=== PATIENT | female | born 1955 | race Caucasian/White ===

== ENCOUNTER 2016-03-01 18:20 | Inpatient (IN) | payer OTHER ==
[~2016-03-01] VITALS: Ht 167.6 cm; Wt 131.5 kg
[~2016-03-01 18:20] MED LIST: ALBU18HF INHALATION; ALBU8.5H5 INH; BACTDS PO; CEPH-443 PO; ETAN50PE2 SQ; FAMO-18 PO; GABA-526 PO; HYDR-3498 PO; IBUP800T25 PO; INSU100C SC; LANS30CA47 PO; LANT3I SC; LOSA100T7 PO; LYR75 PO; MAG355OR15 PO; METO-448 PO; MORP15TA92 PO; MTF1000T PO; ONDA4TAB35 PO; PRED20TA PO; RTPRO NEB; SENN-8 PO; TRAM-408 PO; ZOLP5TAB PO
[2016-03-01] MEDS ORDERED: ONDANSETRON 4 MG INJ IV PRN (18:30)
[2016-03-01] MEDS ORDERED: ACETAMINOPHEN 325 MG TAB PO PRN ×2 (18:30→19:30)
--- NOTE | 2016-03-01 18:45 | ERA ---
ER Documentation Chief Complaint Date/Time DATE: 03/01/16 TIME: 18:42 Chief Complaint Abdominal pain and rectal bleeding HPI Patient is a 51-year-old female with coronary disease, hypertension, and diabetes who presents with abdominal pain and rectal bleeding. The patient was seen in January for back pain. She now has blood in her stool over the past 2 weeks and it has been bright red blood. Patient has diffuse abdominal pain which is sharp in nature. It is constant but waxes and wanes in intensity. It was worse today. She tried Motrin and Excedrin. She says "I think I have a problem with my colon". She is not on blood thinners. She said that 3 years ago she had a colonoscopy and endoscopy which showed "inflamed colon". ROS All systems reviewed and are negative except as per history of present illness. Medications Home Meds Active Scripts Cephalexin* (Keflex*) 500 Mg Capsule, 500 MG PO QID for 7 Days, CAP Prov:RICHARD UMANZOR PA-C 01/05/16 Sulfamethoxazole-Trimethoprim* (Bactrim* DS) 800-160 Mg Tab, 1 TAB PO BID for 7 Days, TAB Prov:RICHARD UMANZOR PA-C 01/05/16 Albuterol Sulfate* (Proventil* Neb) 0.083% Neb, 2.5 MG NEB Q4 Y for SHORTNESS OF BREATH, #30 EA Prov:DANIELLE CHO 04/07/15 Albuterol Sulfate* (Ventolin HFA*) 18 Gm Hfa.aer.ad, 2 PUFF INHALATION Q4H, #1 INHALER Prov:DANIELLE CHO 04/07/15 Prednisone* (Prednisone*) 20 Mg Tab, 40 MG PO DAILY for 4 Days, TAB Prov:DANIELLE CHO 04/07/15 Ibuprofen* (Motrin*) 800 Mg Tab, 800 MG PO Q6, #30 TAB Prov:DANIELLE CHO 04/07/15 Ondansetron Hcl* (Zofran* ODT) 4 mg -ODT Tab.disper, 4 MG PO Q6 Y for NAUSEA AND /OR VOMITING, #20 TAB Prov:SAMIR KIDD MD 09/03/14 Mag Hydrox/Al Hydrox/Simeth (Maalox Max Strength Susp) 769 Ml Oral.susp, 2 TSP PO TID, #12 OZ Prov:SAMIR KIDD MD 09/03/14 Famotidine* (Pepcid*) 20 Mg Tablet, 20 MG PO BID, #30 TAB Prov:SAMIR KIDD MD 09/03/14 Albuterol Sulfate* (Albuterol Sulfate* HFA) 8.5 Gm Hfa.aer.ad, 1-2 PUFF INH Q4 Y for SHORTNESS OF BREATH, #1 EA Prov:SAMIR KIDD MD 09/03/14 Sennosides/Docusate Sodium* (Senna-S*) 1 Tab Tablet, 1 TAB PO Q12 for 30 Days, TAB 1 Refill Prov:MEAGAN WOODRUFF 02/25/14 Hydrocodone Bit/Acetaminophen (Anexsia 5-325 Mg Tablet) 1 Tab Tab, 1 TAB PO q6h Y for PAIN, #14 0 Refills Prov:MEAGAN WOODRUFF 02/25/14 Reported Medications Etanercept (Enbrel) 50 Mg/Ml Pen.injctr, 50 MG SQ on 02/24/14 Insulin Lispro (Humalog) 100 U/Ml Cartridge, 10 UNITS SC WITH MEALS, EA 02/24/14 Metoprolol Tartrate* (Lopressor*) 25 Mg Tab, 25 MG PO BID, TAB 02/24/14 Morphine Sulfate* (Ms Contin*) 15 Mg Tablet.sa, 45 MG PO BID, TAB.SA 02/24/14 Losartan Potassium* (Losartan Potassium*) 100 Mg Tablet, 100 MG PO DAILY, TAB 02/24/14 Insulin Glargine* (Lantus*) 100 Unit/Ml Soln, 40 UNIT SC BID, EA 02/24/14 Pregabalin* (Lyrica*) 75 Mg Capsule, 150 MG PO BID 12/15/12 Tramadol Hcl (Rybix Odt) 50 Mg Tab.rapdis, 50 MG PO DAILY Y for PAIN 12/15/12 Gabapentin* (Gabapentin*) 600 Mg Tablet, 600 MG PO BID 12/15/12 Metformin* (Glucophage*) 1,000 Mg Tablet, 1000 MG PO BID 12/15/12 Zolpidem Tartrate* (Ambien*) 5 Mg Tablet, 5 MG PO DAILY Y for SLEEP 04/16/09 Lansoprazole* (Prevacid*) 30 Mg Capsule.dr, 30 MG PO DAILY 03/19/09 Allergies Allergies: Coded Allergies: No Known Allergy (Verified , 09/03/14) PMhx/Soc History of Surgery: Yes (Cholecystectomy) Anesthesia Reaction: No Hx Neurological Disorder: No Hx Respiratory Disorders: Yes (asthma) Hx Psychiatric Problems: No Hx Miscellaneous Medical Probl: Yes (RA, dm type 2) Hx Alcohol Use: No Hx Substance Use: No Hx Tobacco Use: No FmHx Family History: diabetes Physical Exam Physical Exam Const: Moderate distress secondary to pain Head: Atraumatic Eyes: Normal Conjunctiva ENT: Normal External Ears, Nose and Mouth. Neck: Full range of motion..~ No meningismus. Resp: Clear to auscultation bilaterally Cardio: Regular rate and rhythm, no murmurs Abd: Soft, diffuse tenderness to palpation without rebound or guarding Skin: No petechiae or rashes Back: No midline or flank tenderness Ext: No cyanosis, or edema Neur: Awake and alert Psych: Normal Mood and Affect Results 24 hrs Current Medications Medications (Trade) Dose Ordered Sig/[place] Route PRN Reason Start Time Stop Time Status Last Admin Dose Admin Ondansetron HCl (Zofran Inj) 4 mg BRIDGE ORDER PRN IV NAUSEA AND/OR VOMITING 03/01/16 18:30 03/02/16 18:29 Acetaminophen (Tylenol Tab) 650 mg ER BRIDGE PRN PO MILD PAIN/FEVER 03/01/16 18:30 03/02/16 18:29 Procedures/MDM CT scan shows constipation but no surgical abnormality per radiology. Patient is a 51-year-old female who presents with abdominal pain and rectal bleeding. Laboratory studies show a normal hemoglobin of 13.1 and normal electrolytes, LFTs, and lipase. The patient had a CT scan which did not show any surgical issue. However given the risk of continued rectal bleeding I believe admission is appropriate and I spoke with Dr. Hummel from the panel team. The patient will be admitted to a medical surgical bed. She was given doses of morphine and Dilaudid for pain and is still having abdominal pain. At this point I doubt appendicitis, cholecystitis, pancreatitis, or bowel obstruction. She may benefit from GI consultation and possibly even colonoscopy versus endoscopy or both. Please note that the initial patient was registered as Bhavna Taveras [id number] and the laboratory results and CT scan results were under this patient initially. Departure Diagnosis: Primary Impression: GI bleed Qualified Code: K92.2 - Gastrointestinal hemorrhage, unspecified gastrointestinal hemorrhage type Additional Impression: Abdominal pain Qualified Code: R10.84 - Generalized abdominal pain Condition: TEVIN Gross MD Mar 01, 2016 18:45
[2016-03-01] MEDS ORDERED: ALBUTEROL/IPRATROPIUM (NEB) 3 ML AMP HHN PRN (19:30)
[2016-03-01] MEDS ORDERED: NACL 0.9% 3 ML SYG IV SCH (19:30)
[2016-03-01] MEDS ORDERED: HYDROmorphONE 1 MG/ML SYG IV STA (19:38)
[2016-03-01] MEDS ORDERED: GLUCOSE GEL 15 GRAM TUBE BUCCAL PRN (20:00)
[2016-03-01] MEDS ORDERED: DEXTROSE 50% 50 ML SYRINGE IV PRN ×2 (20:00)
[2016-03-01] MEDS ORDERED: GLUCAGON 1 MG INJ IM PRN (20:00)
[2016-03-01] MEDS ORDERED: GLUCOSE GEL 15 GRAM TUBE PO PRN ×2 (20:00)
[2016-03-01 20:28] VITALS: TEMP 98.4
[2016-03-01 21:00] VITALS: BP 143/73; PULSE 83; RESP 18; Ht 167.6 cm; Wt 131.5 kg
[2016-03-01] MEDS: GABAPENTIN 300 MG CAP PO SCH (21:00)
[2016-03-01] MEDS: PREGABALIN 75 MG CAP PO SCH (21:00)
[2016-03-01] MEDS: INSULIN ASPART [NOVOLOG] 3 ML PEN SC SCH (21:00)
[2016-03-01] MEDS: morphine 4 MG/ML VIAL IV PRN (21:28)
[2016-03-01] MEDS: DEXTROSE 5%-0.45% NACL 1,000 ML IV SCH (21:31)
[2016-03-01] MEDS: INSULIN GLARGINE [LANtus] 3 ML PEN SC SCH (22:46)
[2016-03-01] MEDS: PANTOPRAZOLE 40 MG INJ IV SCH (22:48)
--- NOTE | 2016-03-02 00:03 | HP ---
DATE OF ADMISSION: 03/01/2016 TIME: 10:15 p.m. CHIEF COMPLAINT: Abdominal pain with gastrointestinal bleed. HISTORY OF PRESENT ILLNESS: The patient is a 60-year-old female with a history of insulin-dependent diabetes, fibromyalgia, chronic back pain, gastritis, and hypertension. The patient presents with 2 weeks of abdominal pain that gets worse with eating, is associated with nausea and associated with a GI bleed. The patient states that she has had bright red blood per rectum for the past 2 weeks w hen she has a bowel movement. At times it is mixed in with the stool and at times it sits on top. The patient does take Motrin on a regular basis. She has no other complaints at this time. She dunn s state that earlier today she syncopized while on the toilet. She states that she had a significan t amount of pain prior to her syncopal episode, and she felt dizzy prior to her syncopizing. PAST MEDICAL HISTORY: Once again, insulin-dependent diabetes, hypertension, chronic back pain, mitchel ritis, fibromyalgia. PAST SURGICAL HISTORY: Cholecystectomy. HOME MEDICATIONS: 1. Albuterol. 2. Pepcid. 3. [place]. 4. Ibuprofen. 5. Prevacid. 6. Metformin. 7. Metoprolol. 8. Morphine. 9. Zofran. 10. Prednisone. 11. Senna. 12. Bactrim. 13. Ambien. 14. Tramadol. 15. Enbrel. 16. Gabapentin. 17. Lantus. 18. Humalog. 19. Losartan. 20. Lyrica. ALLERGIES: NO KNOWN DRUG ALLERGIES. FAMILY HISTORY: Diabetes. SOCIAL HISTORY: Denies any alcohol, tobacco, or drug abuse. REVIEW OF SYSTEMS: A 12-point review of systems negative except for that discussed in HPI. PHYSICAL EXAMINATION: VITAL SIGNS: Temperature is 97.6, pulse 83, respiratory rate 18, BP is 142/73, saturation 99% on ro om air. GENERAL: No acute distress, alert and oriented. HEENT: Normocephalic, atraumatic. Pupils equal, round, and reactive to light. CHEST: Clear to auscultation. CARDIOVASCULAR: Regular rate and rhythm. ABDOMEN: Obese, nondistended, soft, nontender. EXTREMITIES: No clubbing, cyanosis, or edema. LABORATORIES: White count is 8.9, hemoglobin 16.0, platelets are 299. Chemistry within normal limi ts except for glucose elevated at 279. ASSESSMENT AND PLAN: 1. Abdominal pain with lower gastrointestinal bleed, is likely secondary to worsening with gastriti s, possible gastric ulcer formation as the patient is on chronic NSAID use. The patient's lower GI bleed may be secondary to hemorrhoids. The patient states that sometimes the bright red blood is on top of her stool. The patient will have a GI consultation. Will defer endoscopy plans to GI. Johny domingo treat with Protonix IV at this time. 2. Syncope. This is likely vasovagal as the patient had significant abdominal pain prior to her sy ncopal episode. She stated that she felt dizzy as well prior to syncopizing. Obtain a 2D echo to r ule out any cardiac etiology. 3. Diabetes. Continue her home insulin. 4. History of fibromyalgia. We will treat pain with morphine and Neurontin as well as her home Lyr ica. 5. Hypertension. Continue her home Losartan. 6. Asthma. Will give breathing treatments with DuoNeb p.r.n. 7. Prophylaxis: SCDs. Dictated By: JANICE BOYD MD BS/NTS Conf#: [id number] DID#: [id number]
[2016-03-02] MEDS: morphine 4 MG/ML VIAL IV PRN ×5 (01:05→22:07)
[2016-03-02] MEDS: PANTOPRAZOLE 40 MG INJ IV SCH ×2 (05:31→17:25)
[2016-03-02 05:41] LABS: ALBUMIN 3.2 g/dl (3.3-4.9)
[2016-03-02 05:42] LABS: POTASSIUM 3.6 mmol/L (3.5-5.1)
[2016-03-02 05:44] LABS: BILIRUBIN,INDIRECT 0.3 mg/dl (0-1.1); BILIRUBIN,TOTAL 0.3 mg/dl (0.2-1.3); CREATININE 0.59 mg/dl (0.44-1.00); TOTAL PROTEIN 6.4 g/dl (6.1-8.1)
[2016-03-02 05:45] LABS: CALCIUM 7.5 mg/dl (8.4-10.2); MAGNESIUM 1.7 mg/dl (1.7-2.5); PHOSPHORUS 3.8 mg/dl (2.5-4.9)
[2016-03-02 05:46] LABS: BASOPHILS % 0.3 % (0.0-2.0); EOSINOPHILS # 0.1 10^3/ul (0.0-0.5); EOSINOPHILS % 0.9 % (0.0-7.0); HEMOGLOBIN 12.2 g/dl (12.0-16.0); LYMPHOCYTES # 2.8 10^3/ul (0.8-2.9); LYMPHOCYTES % 34.5 % (15.0-51.0); MEAN CORPUSCULAR HGB CONC 33.1 g/dl (32.0-37.0); MEAN CORPUSCULAR VOLUME 90.6 fl (82.0-101.0); MEAN PLATELET VOLUME 9.7 fl (7.4-10.4); MONOCYTE # 0.8 10^3/ul (0.3-0.9); MONOCYTES % 9.9 % (0.0-11.0); NEUTROPHIL # 4.4 10^3/ul (1.6-7.5); NEUTROPHILS % 54.4 % (39.0-77.0); PLATELET COUNT 245 10^3/UL (140-440); RED BLOOD COUNT 4.08 10^6/ul (4.20-5.40); RED CELL DISTRIBUTION WIDTH 12.9 % (11.5-14.5)
[2016-03-02] MEDS ORDERED: PANTOPRAZOLE 40 MG INJ IV SCH (06:00)
[2016-03-02 06:10] LABS: CONDITION 1
[2016-03-02 07:27] VITALS: BP 147/63; RESP 16
[2016-03-02] MEDS: DEXTROSE 5%-0.45% NACL 1,000 ML IV SCH ×3 (07:30→17:25)
[2016-03-02] MEDS: INSULIN ASPART [NOVOLOG] 3 ML PEN SC SCH ×7 (07:35→20:47)
[2016-03-02] MEDS: INSULIN GLARGINE [LANtus] 3 ML PEN SC SCH ×2 (08:33→20:47)
[2016-03-02] MEDS: LOSARTAN 50 MG TAB PO SCH (08:34)
[2016-03-02] MEDS: GABAPENTIN 300 MG CAP PO SCH ×2 (08:35→20:48)
[2016-03-02] MEDS: PREGABALIN 75 MG CAP PO SCH ×2 (08:35→20:48)
--- NOTE | 2016-03-02 09:59 | RADRPT ---
Echocardiogram Report Patient Name: ANDREZ ENCISO Gender: Female Date: 1955 Study Date: 02-Mar-2016 Osteopathic Medicine Teacher: Rubens Morales [facility] Location: [id number] Ref. Physician: JANICE BOYD Quality: Technically Difficult Study Procedures: Transthoracic echocardiogram with complete 2D, M-Mode, and doppler examination. Indications: Evaluate Left Ventricular function. 2D/M Mode Doppler Measurement Value Normal Ranges Measurement Value Normal Ranges LVIDd 2D 5.1 3.5 - 5.6 cm AV Peak Ramon 1.7 m/sec LVIDs 2D 2.9 2.1 - 4.1 cm AV Peak PG 11.0 mmHg FS 2D 42.9 % LVOT Peak Ramon 1.0 m/sec LVPWd 2D 1.1 0.6 - 1.1 cm LVOT Peak PG 4.0 mmHg IVSd 2D 1.0 0.6 - 1.1 cm MV E Peak Ramon 0.7 m/sec IVS/LVPW 2D 0.9 MV A Peak Ramon 0.8 m/sec AoR Diam 2D 3.3 2.0 - 3.7 cm MV E/A 0.9 LA/Ao 2D 1 0 - 1 MV Decel Time 141 msec EDV 2D 130.0 cm3 MV E/A 0.9 ESV 2D 24.1 cm3 LA Dimen 2D 3.8 2.3 - 4.0 cm Findings Left Ventricle: Normal left ventricular systolic function. Normal left ventricular cavity size. Mild concentric left ventricular hypertrophy. Ejection fraction is visually estimated at 55 %. Tissue Doppler/Mitral Doppler indices are consistent with impaired relaxation (Stage I diastolic dysfunction). Right Ventricle: Normal right ventricular size. Normal right ventricular systolic function. Left Atrium: There is mild enlargement of left atrium. Right Atrium: The right atrium is normal in size. Mitral Valve: Mild mitral annular calcification. Trace mitral regurgitation. Aortic Valve: No significant aortic stenosis or insufficiency. Aortic cusps appear mildly calcified. Tricuspid Valve: Normal appearance of the tricuspid valve. Unable to obtain RVSP due to minimal presence of tricuspid regurgitation. Pericardium: Normal pericardium with no significant pericardial effusion. Aorta: Normal aortic root. IVC: The IVC is not well visualized. Conclusions 1.Normal left ventricular systolic function. Normal left ventricular cavity size. Mild concentric left ventricular hypertrophy. Ejection fraction is visually estimated at 55 %. Tissue Doppler/Mitral Doppler indices are consistent with impaired relaxation (Stage I diastolic dysfunction). 2.No significant valvular stenosis or regurgitation seen. 3.PAP and RA pressure could not be estimated. Electronically Signed By: Horacio Casper 02-Mar-2016 09:58:32 -0800 Patient Name: ANDREZ ENCISO Study Date: 02-Mar-[id number]
[2016-03-02] MEDS ORDERED: CEPASTAT LOZENGE MT PRN (13:00)
[2016-03-02 13:32] LABS: HEMATOCRIT 36.4 % (37.0-47.0); HEMOGLOBIN 12.1 g/dl (12.0-16.0)
--- NOTE | 2016-03-02 14:14 | PN ---
Date/Time of Note Date/Time of Note DATE: 03/02/16 TIME: 14:09 Assessment/Plan VTE Prophylaxis VTE Prophylaxis Intervention: SCD's Lines/Catheters IV [facility]ter Type (from [facility]): Peripheral IV Urinary Cath still in place: No Assessment/Plan Assessment/Plan 1. Abdominal pain. Etiology unclear. The patient has history of colitis. She also has a history of esophagitis and patchy gastritis. Will obtain a CT scan of the abdomen and pelvis without contrast. 2. Reported hematochezia. Will monitor the H&H closely. Continue proton pump inhibitors. Pending gastroenterology evaluation. 3. Type 2 diabetes mellitus. Continue sliding scale insulin. Obtain hemoglobin A1c. 4. Essential hypertension. Continue antihypertensives. 5. Fibromyalgia. Continue Lyrica. 6. Fluids, electrolytes, and nutrition. N.p.o. except for medications. Continue IV fluids. 7. Gastrointestinal prophylaxis. Proton pump inhibitors. 8. DVT prophylaxis. Bilateral SCDs. 9. Plan. Continue pain control. Monitor H&H closely. Obtain CT scan of the abdomen and pelvis. Await gastroenterology evaluation. Case discussed with Dr. Prado. Subjective 24 Hr Interval Summary Free Text/Dictation Complains of severe abdominal pain. Complains of nausea. Denies any vomiting. Last episode of hematochezia on 03/01/2016. Exam/Review of Systems Vital Signs Vitals Vital Signs Date Time Temp Pulse Resp B/P Pulse Ox O2 Delivery O2 Flow Rate FiO2 03/02/16 07:27 98.0 91 16 147/63 98 03/01/16 21:00 Room Air Intake and Output 03/01/16 03/01/16 03/02/16 15:00 23:00 07:00 Intake Total 750 ml Balance 750 ml Exam General: Morbidly obese build 60 year-old female lying in bed in no apparent distress. HEENT: Normocephalic, atraumatic. Eyes: Anicteric sclerae, conjunctivae clear. ENT: Nasal septum midline, oral mucosa is dry. Neck supple, no JVD noticed. Respiratory: Bilaterally clear breath sounds. No use of accessory muscles of respiration. No adventitious breath sounds. Cardiovascular: S1, S2 heard. No murmurs or gallops. Abdomen: Soft and nondistended. Bowel sounds positive in all 4 quadrants. Diffuse tenderness in all 4 quadrants. Genitourinary: Deferred. Extremities: No cyanosis, no clubbing, no edema. Peripheral pulses palpable. Neurologic: Cranial nerves II through XII grossly intact. The patient is awake, alert, and oriented. Skin: Normal skin turgor. No skin rashes. Results Result Diagram: 03/02/16 1320 03/02/16 0428 Results 24 hrs Laboratory Tests Test 03/01/16 20:53 03/02/16 03:10 03/02/16 04:28 03/02/16 08:27 Bedside Glucose 158 194 203 Alanine Aminotransferase (ALT/SGPT) 51 Albumin 3.2 L Albumin/Globulin Ratio 1.00 Alkaline Phosphatase 101 Anion Gap 12 Aspartate Amino Transf (AST/SGOT) 47 H Basophils # 0.0 Basophils % 0.3 Blood Urea Nitrogen 9 Calcium Level 7.5 L Carbon Dioxide Level 30 Chloride Level 103 Creatinine 0.59 Direct Bilirubin 0.00 Eosinophils # 0.1 Eosinophils % 0.9 Globulin 3.20 Glucose Level 210 Hematocrit 37.0 Hemoglobin 12.2 Indirect Bilirubin 0.3 Lymphocytes # 2.8 Lymphocytes % 34.5 Magnesium Level 1.7 Mean Corpuscular Hemoglobin 30.0 Mean Corpuscular Hemoglobin Concent 33.1 Mean Corpuscular Volume 90.6 Mean Platelet Volume 9.7 Monocytes # 0.8 Monocytes % 9.9 Neutrophils # 4.4 Neutrophils % 54.4 Nucleated Red Blood Cells # 0.0 Nucleated Red Blood Cells % 0.0 Phosphorus Level 3.8 Platelet Count 245 Potassium Level 3.6 Red Blood Count 4.08 L Red Cell Distribution Width 12.9 Sodium Level 141 Total Bilirubin 0.3 Total Protein 6.4 White Blood Count 8.0 Test 03/02/16 13:11 03/02/16 13:20 Bedside Glucose 213 Hematocrit 36.4 L Hemoglobin 12.1 Medications Medications Current Medications Dextrose/Sodium Chloride (D5-1/2ns) 1,000 ml @ 100 mls/hr Q10H IV Last administered on 03/02/16t 07:30; Admin Dose 100 MLS/HR; Start 03/01/16 at 19:28 Ondansetron HCl (Zofran Inj) 4 mg Q6H PRN IV NAUSEA AND/OR VOMITING; Start 03/01 at 19:30 Acetaminophen (Tylenol Tab) 650 mg Q6H PRN PO PAIN LEVEL 1-3 OR FEVER; Start at 19:30 Morphine Sulfate (morphine) 4 mg Q4H PRN IV SEVERE PAIN LEVEL 7-10 Last administered on 03/02/16 13:19; Admin Dose 4 MG; Start 03/01/16 at 19:30 Gabapentin (Neurontin) 600 mg BID PO ; Start 03/01/16 at 21:00 Insulin Glargine (Lantus) 40 unit BID SC Last administered on 03/02/16 08:33; Admin Dose 40 UNIT; Start 03/01/16 at 21:00 Losartan Potassium (Cozaar) 100 mg DAILY PO Last administered on 03/02/16 08:34 ; Admin Dose 100 MG; Start 03/02/16 at 09:00 Pregabalin (Lyrica) 150 mg BID PO ; Start 03/01/16 at 21:00 Miscellaneous Information 1 ea NOTE XX ; Start 03/01/16 at 20:00 Glucose (Glutose) 15 gm Q15M PRN PO DECREASED GLUCOSE; Start 03/01/16 at 20:00 Glucose (Glutose) 22.5 gm Q15M PRN PO DECREASED GLUCOSE; Start 03/01/16 at 20:00 Dextrose (D50w Syringe) 25 ml Q15M PRN IV DECREASED GLUCOSE; Start 03/01/16 at 20:00 Dextrose (D50w Syringe) 50 ml Q15M PRN IV DECREASED GLUCOSE; Start 03/01/16 at 20:00 Glucagon (Glucagen) 1 mg Q15M PRN IM DECREASED GLUCOSE; Start 03/01/16 at 20:00 Glucose (Glutose) 15 gm Q15M PRN BUCCAL DECREASED GLUCOSE; Start 03/01/16 at 20: 00 Pantoprazole (Protonix Iv) 40 mg BID@06,18 IV Last administered on 03/02/16 05: 31; Admin Dose 40 MG; Start 03/01/16 at 22:40 Phenol (Cepastat Lozenge) 1 lozenge Q1H PRN MT SORE THROAT; Start 03/02/16 at 13 :00 POLO MCLAUGHLIN NP Mar 02, 2016 14:14
--- NOTE | 2016-03-02 16:00 | RADRPT ---
PROCEDURE: CT Abdomen and Pelvis without contrast. CLINICAL INDICATION: Abdominal pain TECHNIQUE: CT scan of the abdomen and pelvis was performed on a multidetector high-resolution CT s canner without intravenous contrast. Coronal and sagittal reformatted images were obtained from the axial source images. Images were reviewed on a high-resolution PACS workstation. The total exam CTD I equals 24mGy and the total exam DLP equals 1427mGy-cm. COMPARISON: Abdominal CT 02/24/2014 FINDINGS: Evaluation of the solid organs is limited given the lack of intravenous contrast administration. Left lower lobe calcified granuloma. Hypoattenuation of the liver. Status post cholecystectomy. No evidence of biliary dilatation. The pancreas, spleen, and adrenals are grossly unremarkable. No hydronephrosis. No renal or ureteral stone. No bowel obstruction. Normal-caliber appendix. No significant retroperitoneal lymphadenopathy, ascites or evidence of pneumoperitoneum. Aortoiliac atherosclerosis. Degenerative changes of the spine. Bilateral L5 pars defects. IMPRESSION: No acute intra-abdominal process identified. Status post cholecystectomy. Hepatic steatosis. RPTAT: AA .Baldomero Newberry MD, MD Date Time Electronically viewed and signed by .Baldomero Newberry MD, on 03/02/2016 16:00 .T/
[2016-03-02] MEDS ORDERED: BISACODYL (EC) 5 MG TAB PO ONE ×2 (19:00→22:00)
[2016-03-02] MEDS ORDERED: MAGNESIUM CITRATE 300 ML BTL PO ONE (19:00)
--- NOTE | 2016-03-02 19:34 | CONS ---
Date/Time of Note Date/Time of Note DATE: 03/02/16 TIME: 19:26 Assessment/Plan Assessment/Plan Additional Assessment/Plan Abdominal pain, evaluate for PUD * Recommend EGD * PPI therapy Hematochezia * Recommend colonoscopy Hypertension Type 2 diabetes Obesity Fibromyalgia Chronic back pain Further recommendations depend on clinical course Consultation Date/Type/Reason Admit Date/Time Mar 01, 2016 at 18:28 Hx of Present Illness 60-year-old obese female with reports of hematochezia and intense epigastric abdominal pain for the last 2-3 days. Patient reported several episodes seeing blood after bowel movements and blood in toilet bowl for the last 2-3 days. Patient denies previous episode, laxative use, diverticulosis diagnosis, anal trauma, and hemorrhoids. In addition to this, patient reports intense epigastric pain that is worse when she eats. Patient reports history of gastritis and PPI use for several years. She reports a EGD and colonoscopy 2 years ago. She states EGD noted gastritis and colonoscopy noted inflammation and she was given unknown medication for treatment. Patient also reports chronic use of NSAID to help treat fibromyalgia and chronic pain. Patient has PMH of insulin-dependent diabetes, fibromyalgia, chronic back pain, gastritis, and hypertension. Recommend EGD and colonoscopy. Patient advised of risks/ benefits/alternatives to procedures and she is agreeable to proceed. Per HPI Past Medical History Medical History: diabetes, GERD, hypertension Past Surgical History Past Surgical Hx: no surgical history Social History Alcohol Use: none Smoking Status: Never smoker Exam/Review of Systems Vital Signs Vitals Vital Signs Date Time Temp Pulse Resp B/P Pulse Ox O2 Delivery O2 Flow Rate FiO2 03/02/16 07:27 98.0 91 16 147/63 98 03/01/16 21:00 Room Air Intake and Output 03/01/16 03/01/16 03/02/16 15:00 23:00 07:00 Intake Total 750 ml Balance 750 ml Exam Constitutional: alert, obese, oriented, well developed Psych: nl mood/affect Eyes: EOMI ENMT: nl external ears & nose, nl lips & teeth, nl nasal mucosa & septum Respiratory: normal air movement Cardiovascular: regular rate and rhythm Gastrointestinal: soft, tender (Epigastric) Neurological: RECRUITING INTERN II-XII intact Results Result Diagram: 03/02/16 1320 03/02/16 0428 Results 24 hrs Laboratory Tests Test 03/01/16 20:53 03/02/16 03:10 03/02/16 04:28 03/02/16 08:27 Bedside Glucose 158 194 203 Alanine Aminotransferase (ALT/SGPT) 51 Albumin 3.2 L Albumin/Globulin Ratio 1.00 Alkaline Phosphatase 101 Anion Gap 12 Aspartate Amino Transf (AST/SGOT) 47 H Basophils # 0.0 Basophils % 0.3 Blood Urea Nitrogen 9 Calcium Level 7.5 L Carbon Dioxide Level 30 Chloride Level 103 Creatinine 0.59 Direct Bilirubin 0.00 Eosinophils # 0.1 Eosinophils % 0.9 Globulin 3.20 Glucose Level 210 Hematocrit 37.0 Hemoglobin 12.2 Indirect Bilirubin 0.3 Lymphocytes # 2.8 Lymphocytes % 34.5 Magnesium Level 1.7 Mean Corpuscular Hemoglobin 30.0 Mean Corpuscular Hemoglobin Concent 33.1 Mean Corpuscular Volume 90.6 Mean Platelet Volume 9.7 Monocytes # 0.8 Monocytes % 9.9 Neutrophils # 4.4 Neutrophils % 54.4 Nucleated Red Blood Cells # 0.0 Nucleated Red Blood Cells % 0.0 Phosphorus Level 3.8 Platelet Count 245 Potassium Level 3.6 Red Blood Count 4.08 L Red Cell Distribution Width 12.9 Sodium Level 141 Total Bilirubin 0.3 Total Protein 6.4 White Blood Count 8.0 Test 03/02/16 13:11 03/02/16 13:20 03/02/16 17:16 Bedside Glucose 213 198 Hematocrit 36.4 L Hemoglobin 12.1 Hemoglobin A1c 9.9 H Medications Medications Current Medications Dextrose/Sodium Chloride (D5-1/2ns) 1,000 ml @ 100 mls/hr Q10H IV Last administered on 03/02/16 17:25; Admin Dose 100 MLS/HR; Start 03/01/16 at 19:28 Ondansetron HCl (Zofran Inj) 4 mg Q6H PRN IV NAUSEA AND/OR VOMITING; Start 03/01 at 19:30 Acetaminophen (Tylenol Tab) 650 mg Q6H PRN PO PAIN LEVEL 1-3 OR FEVER; Start at 19:30 Morphine Sulfate (morphine) 4 mg Q4H PRN IV SEVERE PAIN LEVEL 7-10 Last administered on 03/02/16 13:19; Admin Dose 4 MG; Start 03/01/16 at 19:30 Gabapentin (Neurontin) 600 mg BID PO ; Start 03/01/16 at 21:00 Insulin Glargine (Lantus) 40 unit BID SC Last administered on 03/02/16 08:33; Admin Dose 40 UNIT; Start 03/01/16 at 21:00 Losartan Potassium (Cozaar) 100 mg DAILY PO Last administered on 03/02/16 08:34 ; Admin Dose 100 MG; Start 03/02/16 at 09:00 Pregabalin (Lyrica) 150 mg BID PO ; Start 03/01/16 at 21:00 Miscellaneous Information 1 ea NOTE XX ; Start 03/01/16 at 20:00 Glucose (Glutose) 15 gm Q15M PRN PO DECREASED GLUCOSE; Start 03/01/16 at 20:00 Glucose (Glutose) 22.5 gm Q15M PRN PO DECREASED GLUCOSE; Start 03/01/16 at 20:00 Dextrose (D50w Syringe) 25 ml Q15M PRN IV DECREASED GLUCOSE; Start 03/01/16 at 20:00 Dextrose (D50w Syringe) 50 ml Q15M PRN IV DECREASED GLUCOSE; Start 03/01/16 at 20:00 Glucagon (Glucagen) 1 mg Q15M PRN IM DECREASED GLUCOSE; Start 03/01/16 at 20:00 Glucose (Glutose) 15 gm Q15M PRN BUCCAL DECREASED GLUCOSE; Start 03/01/16 at 20: 00 Pantoprazole (Protonix Iv) 40 mg BID@06,18 IV Last administered on 03/02/16 17: 25; Admin Dose 40 MG; Start 03/01/16 at 22:40 Phenol (Cepastat Lozenge) 1 lozenge Q1H PRN MT SORE THROAT; Start 03/02/16 at 13 :00 Polyethylene Glycol (Miralax) 119 gm ONCE ONCE PO ; Start 03/02/16 at 20:00; Stop 03/02/16 at 20:01 MEDINA MONGE MD Mar 02, 2016 19:34
[2016-03-02] MEDS ORDERED: POLYETHYLENE GLYCOL 3350 119 GM POWDER PO ONE ×2 (20:00→22:00)
[2016-03-02 20:25] VITALS: BP 164/76; RESP 16
[2016-03-02] MEDS: ONDANSETRON 4 MG INJ IV PRN (20:50)
[2016-03-02 22:30] VITALS: BP 138/65; PULSE 80
[2016-03-03] MEDS: morphine 4 MG/ML VIAL IV PRN ×5 (02:09→21:36)
[2016-03-03] MEDS: ONDANSETRON 4 MG INJ IV PRN ×2 (02:09→08:47)
[2016-03-03] MEDS: DEXTROSE 5%-0.45% NACL 1,000 ML IV SCH ×3 (03:39→21:28)
[2016-03-03] MEDS: PANTOPRAZOLE 40 MG INJ IV SCH ×2 (05:42→18:45)
[2016-03-03 05:48] LABS: INR 0.94; PROTIME 12.6 Sec (12.2-14.2)
[2016-03-03 05:49] LABS: PARTIAL THROMBOPLASTIN TIME 30.7 Sec (25.0-35.0)
[2016-03-03 05:51] LABS: BASOPHILS % 0.3 % (0.0-2.0); EOSINOPHILS # 0.1 10^3/ul (0.0-0.5); EOSINOPHILS % 1.2 % (0.0-7.0); HEMATOCRIT 37.6 % (37.0-47.0); HEMOGLOBIN 12.4 g/dl (12.0-16.0); LYMPHOCYTES # 2.9 10^3/ul (0.8-2.9); LYMPHOCYTES % 41.1 % (15.0-51.0); MEAN CORPUSCULAR VOLUME 90.8 fl (82.0-101.0); MEAN PLATELET VOLUME 9.4 fl (7.4-10.4); MONOCYTE # 0.8 10^3/ul (0.3-0.9); MONOCYTES % 10.6 % (0.0-11.0); NEUTROPHIL # 3.3 10^3/ul (1.6-7.5); NEUTROPHILS % 46.8 % (39.0-77.0); PLATELET COUNT 256 10^3/UL (140-440); RED BLOOD COUNT 4.14 10^6/ul (4.20-5.40); UNCORRECTED WBC 7.1 10^3/ul (4.8-10.8); WHITE BLOOD COUNT 7.1 10^3/ul (4.8-10.8)
[2016-03-03 05:59] LABS: CONDITION 1
[2016-03-03 06:00] LABS: CHOL/HDL RATIO 4.8 RATIO; IRON 74 ug/dl (35-150); MAGNESIUM 2.1 mg/dl (1.7-2.5)
[2016-03-03 06:10] LABS: TOTAL IRON BINDING CAPACITY 299 ug/dl (241-421)
[2016-03-03 06:13] LABS: ALBUMIN 3.1 g/dl (3.3-4.9)
[2016-03-03 06:16] LABS: ALBUMIN/GLOBULIN RATIO 0.96; BILIRUBIN,INDIRECT 0.3 mg/dl (0-1.1); BILIRUBIN,TOTAL 0.3 mg/dl (0.2-1.3); CREATININE 0.56 mg/dl (0.44-1.00); TOTAL PROTEIN 6.3 g/dl (6.1-8.1)
[2016-03-03 06:17] LABS: CALCIUM 8.2 mg/dl (8.4-10.2)
[2016-03-03 07:34] LABS: FERRITIN 52.2 ng/ml (11.1-264.0); THYROID STIMULATING HORMONE 1.59 MIU/L (0.465-4.680)
[2016-03-03] MEDS: INSULIN ASPART [NOVOLOG] 3 ML PEN SC SCH ×8 (07:35→21:00)
[2016-03-03 08:14] VITALS: BP 128/55; RESP 18
[2016-03-03] MEDS: LOSARTAN 50 MG TAB PO SCH (08:46)
[2016-03-03] MEDS: PREGABALIN 75 MG CAP PO SCH ×2 (08:46→21:00)
[2016-03-03] MEDS: GABAPENTIN 300 MG CAP PO SCH ×2 (08:47→21:00)
[2016-03-03] MEDS: INSULIN GLARGINE [LANtus] 3 ML PEN SC SCH ×2 (08:49→21:34)
--- NOTE | 2016-03-03 10:06 | PN ---
Date/Time of Note Date/Time of Note DATE: 03/03/16 TIME: 10:06 Assessment/Plan VTE Prophylaxis VTE Prophylaxis Intervention: SCD's Lines/Catheters IV [facility] (from [facility] Peripheral IV Urinary Cath still in place: No Assessment/Plan Chief Complaint/Hosp Course 1. Abdominal pain. Etiology unclear. The patient has history of colitis. She also has a history of esophagitis and patchy gastritis. CT scan of the abdomen and pelvis negative for any acute findings. 2. Reported hematochezia. Will monitor the H&H closely. Continue proton pump inhibitors. Pending upper and lower endoscopy. 3. Type 2 diabetes mellitus. Continue sliding scale insulin. Hemoglobin A1c 9.9. 4. Essential hypertension. Continue antihypertensives. 5. Fibromyalgia. Continue Lyrica. 6. Transaminitis without hyperbilirubinemia. Etiology unclear. Avoid hepatotoxic medications. Continue to monitor. 7. Fluids, electrolytes, and nutrition. Clear liquids. Continue IV fluids. 8. Gastrointestinal prophylaxis. Proton pump inhibitors. 9. DVT prophylaxis. Bilateral SCDs. 10. Plan. Continue pain control. Monitor H&H closely. Await gastroenterology intervention. Case discussed with Dr. Prado. Problems: Subjective 24 Hr Interval Summary Free Text/Dictation Complains of abdominal pain. Exam/Review of Systems Vital Signs Vitals Vital Signs Date Time Temp Pulse Resp B/P Pulse Ox O2 Delivery O2 Flow Rate FiO2 03/03/16 08:14 98.1 79 18 128/55 96 03/01/16 21:00 Room Air Intake and Output 03/02/16 03/02/16 03/03/16 15:00 23:00 07:00 Intake Total 250 ml 1000 ml 3280 ml Balance 250 ml 1000 ml 3280 ml Exam General: Morbidly obese build 60 year-old female lying in bed in no apparent distress. HEENT: Normocephalic, atraumatic. Eyes: Anicteric sclerae, conjunctivae clear. ENT: Nasal septum midline, oral mucosa is dry. Neck supple, no JVD noticed. Respiratory: Bilaterally clear breath sounds. No use of accessory muscles of respiration. No adventitious breath sounds. Cardiovascular: S1, S2 heard. No murmurs or gallops. Abdomen: Soft and nondistended. Bowel sounds positive in all 4 quadrants. Diffuse tenderness in all 4 quadrants. Genitourinary: Deferred. Extremities: No cyanosis, no clubbing, no edema. Peripheral pulses palpable. Neurologic: Cranial nerves II through XII grossly intact. The patient is awake, alert, and oriented. Skin: Normal skin turgor. No skin rashes. Results Result Diagram: 03/03/16 0435 03/03/16 0435 Results 24 hrs Laboratory Tests Test 03/02/16 13:11 03/02/16 13:20 03/02/16 17:16 03/02/16 20:45 Bedside Glucose 213 198 185 Hematocrit 36.4 L Hemoglobin 12.1 Hemoglobin A1c 9.9 H Test 03/03/16 02:02 03/03/16 04:35 03/03/16 08:31 Bedside Glucose 189 189 Activated Partial Thromboplast Time 30.7 Alanine Aminotransferase (ALT/SGPT) 77 H Albumin 3.1 L Albumin/Globulin Ratio 0.96 Alkaline Phosphatase 125 H Anion Gap 15 Aspartate Amino Transf (AST/SGOT) 93 H Basophils # 0.0 Basophils % 0.3 Blood Urea Nitrogen 7 Calcium Level 8.2 L Carbon Dioxide Level 28 Chloride Level 105 Cholesterol Level 140 Cholesterol/HDL Ratio 4.8 Creatinine 0.56 Direct Bilirubin 0.00 Eosinophils # 0.1 Eosinophils % 1.2 Ferritin 52.2 Globulin 3.20 Glucose Level 183 HDL Cholesterol 29 L Hematocrit 37.6 Hemoglobin 12.4 INR International Normalized Ratio 0.94 Indirect Bilirubin 0.3 Iron Level 74 LDL Cholesterol, Calculated 95 Lymphocytes # 2.9 Lymphocytes % 41.1 Magnesium Level 2.1 Mean Corpuscular Hemoglobin 30.0 Mean Corpuscular Hemoglobin Concent 33.0 Mean Corpuscular Volume 90.8 Mean Platelet Volume 9.4 Monocytes # 0.8 Monocytes % 10.6 Neutrophils # 3.3 Neutrophils % 46.8 Nucleated Red Blood Cells # 0.0 Nucleated Red Blood Cells % 0.0 Percent Iron Saturation 25 Phosphorus Level 4.0 Platelet Count 256 Potassium Level 4.0 Prothrombin Time 12.6 Prothrombin Time Ratio 1.0 Red Blood Count 4.14 L Red Cell Distribution Width 13.0 Sodium Level 144 Thyroid Stimulating Hormone (TSH) 1.590 Total Bilirubin 0.3 Total Iron Binding Capacity 299 Total Protein 6.3 Triglycerides Level 82 White Blood Count 7.1 Medications Medications Current Medications Dextrose/Sodium Chloride (D5-1/2ns) 1,000 ml @ 100 mls/hr Q10H IV Last administered on 03/03/16 03:39; Admin Dose 100 MLS/HR; Start 03/01/16 at 19:28 Ondansetron HCl (Zofran Inj) 4 mg Q6H PRN IV NAUSEA AND/OR VOMITING Last administered on 03/03/16 08:47; Admin Dose 4 MG; Start 03/01/16 at 19:30 Acetaminophen (Tylenol Tab) 650 mg Q6H PRN PO PAIN LEVEL 1-3 OR FEVER; Start at 19:30 Morphine Sulfate (morphine) 4 mg Q4H PRN IV SEVERE PAIN LEVEL 7-10 Last administered on 03/03/16 02:09; Admin Dose 4 MG; Start 03/01/16 at 19:30 Gabapentin (Neurontin) 600 mg BID PO ; Start 03/01/16 at 21:00 Insulin Glargine (Lantus) 40 unit BID SC Last administered on 03/03/16 08:49; Admin Dose 40 UNIT; Start 03/01/16 at 21:00 Losartan Potassium (Cozaar) 100 mg DAILY PO Last administered on 03/02/16 08:34 ; Admin Dose 100 MG; Start 03/02/16 at 09:00 Pregabalin (Lyrica) 150 mg BID PO ; Start 03/01/16 at 21:00 Miscellaneous Information 1 ea NOTE XX ; Start 03/01/16 at 20:00 Glucose (Glutose) 15 gm Q15M PRN PO DECREASED GLUCOSE; Start 03/01/16 at 20:00 Glucose (Glutose) 22.5 gm Q15M PRN PO DECREASED GLUCOSE; Start 03/01/16 at 20:00 Dextrose (D50w Syringe) 25 ml Q15M PRN IV DECREASED GLUCOSE; Start 03/01/16 at 20:00 Dextrose (D50w Syringe) 50 ml Q15M PRN IV DECREASED GLUCOSE; Start 03/01/16 at 20:00 Glucagon (Glucagen) 1 mg Q15M PRN IM DECREASED GLUCOSE; Start 03/01/16 at 20:00 Glucose (Glutose) 15 gm Q15M PRN BUCCAL DECREASED GLUCOSE; Start 03/01/16 at 20: 00 Pantoprazole (Protonix Iv) 40 mg BID@06,18 IV Last administered on 03/03/16 05: 42; Admin Dose 40 MG; Start 03/01/16 at 22:40 Phenol (Cepastat Lozenge) 1 lozenge Q1H PRN MT SORE THROAT; Start 03/02/16 at 13 :00 Magnesium Citrate (Citroma) 300 ml ONCE ONCE PO ; Start 03/03/16 at 12:00; Stop 03/03/16 at 12:01 POLO MCLAUGHLIN NP Mar 03, 2016 10:06
[2016-03-03] MEDS ORDERED: MAGNESIUM CITRATE 300 ML BTL PO ONE (12:00)
[2016-03-03 20:38] VITALS: BP 143/64; RESP 16
[2016-03-04] VITALS (10 sets, daily range): BP systolic 119–151; BP diastolic 58–71; PULSE 78–85; RESP 18–20
[2016-03-04] MEDS: morphine 4 MG/ML VIAL IV PRN ×7 (00:31→21:40)
[2016-03-04] MEDS: DEXTROSE 5%-0.45% NACL 1,000 ML IV SCH ×2 (00:34→13:48)
[2016-03-04] MEDS: PANTOPRAZOLE 40 MG INJ IV SCH ×2 (05:18→18:02)
[2016-03-04 06:06] LABS: ALBUMIN 3.2 g/dl (3.3-4.9)
[2016-03-04 06:07] LABS: POTASSIUM 3.4 mmol/L (3.5-5.1)
[2016-03-04 06:09] LABS: BILIRUBIN,INDIRECT 0.4 mg/dl (0-1.1); BILIRUBIN,TOTAL 0.4 mg/dl (0.2-1.3); CREATININE 0.58 mg/dl (0.44-1.00)
[2016-03-04 06:10] LABS: ALBUMIN/GLOBULIN RATIO 0.96; CALCIUM 7.9 mg/dl (8.4-10.2); TOTAL PROTEIN 6.5 g/dl (6.1-8.1)
[2016-03-04 06:11] LABS: BASOPHILS % 0.3 % (0.0-2.0); EOSINOPHILS # 0.1 10^3/ul (0.0-0.5); EOSINOPHILS % 1.1 % (0.0-7.0); HEMATOCRIT 38.1 % (37.0-47.0); HEMOGLOBIN 12.6 g/dl (12.0-16.0); LYMPHOCYTES # 2.9 10^3/ul (0.8-2.9); LYMPHOCYTES % 35.9 % (15.0-51.0); MEAN CORPUSCULAR HEMOGLOBIN 30.2 pg (29.0-33.0); MEAN CORPUSCULAR HGB CONC 33.2 g/dl (32.0-37.0); MEAN CORPUSCULAR VOLUME 90.8 fl (82.0-101.0); MEAN PLATELET VOLUME 9.2 fl (7.4-10.4); MONOCYTE # 0.8 10^3/ul (0.3-0.9); MONOCYTES % 9.8 % (0.0-11.0); NEUTROPHIL # 4.2 10^3/ul (1.6-7.5); NEUTROPHILS % 52.9 % (39.0-77.0); PLATELET COUNT 287 10^3/UL (140-440); RED BLOOD COUNT 4.19 10^6/ul (4.20-5.40)
[2016-03-04 06:15] LABS: MAGNESIUM 2.2 mg/dl (1.7-2.5); PHOSPHORUS 4.7 mg/dl (2.5-4.9)
[2016-03-04 06:18] LABS: CONDITION 1
[2016-03-04] MEDS: LOSARTAN 50 MG TAB PO SCH (08:14)
[2016-03-04] MEDS: INSULIN ASPART [NOVOLOG] 3 ML PEN SC SCH ×7 (08:17→21:00)
[2016-03-04] MEDS: INSULIN GLARGINE [LANtus] 3 ML PEN SC SCH ×2 (08:19→21:50)
[2016-03-04] MEDS: PREGABALIN 75 MG CAP PO SCH ×2 (08:19→21:00)
[2016-03-04] MEDS: GABAPENTIN 300 MG CAP PO SCH ×2 (08:19→21:00)
--- NOTE | 2016-03-04 08:43 | PN ---
Date/Time of Note Date/Time of Note DATE: 03/04/16 TIME: 08:40 Assessment/Plan VTE Prophylaxis VTE Prophylaxis Intervention: ambulation, SCD's Lines/Catheters IV C[facility] Type (from [facility]): Peripheral IV Urinary Cath still in place: No Assessment/Plan Assessment/Plan 1. Abdominal pain. Etiology unclear. The patient has history of colitis. She also has a history of esophagitis and patchy gastritis. CT scan of the abdomen and pelvis negative for any acute findings. 2. Reported hematochezia. Will monitor the H&H closely. Continue proton pump inhibitors. Pending upper and lower endoscopy / stool occult blood still pending 3. Type 2 diabetes mellitus. Continue sliding scale insulin. Hemoglobin A1c 9.9. 4. Essential hypertension. Continue antihypertensives. 5. Fibromyalgia. Consider d/c lyrica in view of GI symptoms 6. Transaminitis without hyperbilirubinemia. Etiology unclear. Avoid hepatotoxic medications. Continue to monitor. 7. Fluids, electrolytes, and nutrition. Clear liquids. Continue IV fluids. 8. Gastrointestinal prophylaxis. Proton pump inhibitors. 9. DVT prophylaxis. Bilateral SCDs. 10. Plan: planned for upper and lower endoscopy per GI today at 5pm / appreciate review / f/u findings. Subjective 24 Hr Interval Summary Free Text/Dictation Patient seen and examined. Still with a lot of nausea and abdominal discomfort Exam/Review of Systems Vital Signs Vitals Vital Signs Date Time Temp Pulse Resp B/P Pulse Ox O2 Delivery O2 Flow Rate FiO2 03/04/16 07:34 98.7 91 18 151/68 97 03/01/16 21:00 Room Air Intake and Output 03/03/16 03/03/16 03/04/16 15:00 23:00 07:00 Intake Total 900 ml 1300 ml 1530 ml Output Total 1150 ml 700 ml Balance 900 ml 150 ml 830 ml Exam General: Morbidly obese build 60 year-old female lying in bed in no apparent distress. HEENT: Normocephalic, atraumatic. Eyes: Anicteric sclerae, conjunctivae clear. ENT: Nasal septum midline, oral mucosa is dry. Neck supple, no JVD noticed. Respiratory: Bilaterally clear breath sounds. No use of accessory muscles of respiration. No adventitious breath sounds. Cardiovascular: S1, S2 heard. No murmurs or gallops. Abdomen: Soft and nondistended. Bowel sounds positive in all 4 quadrants. Diffuse tenderness in all 4 quadrants. Genitourinary: Deferred. Extremities: No cyanosis, no clubbing, no edema. Peripheral pulses palpable. Neurologic: Cranial nerves II through XII grossly intact. The patient is awake, alert, and oriented. Skin: Normal skin turgor. No skin rashes. Results Result Diagram: 03/04/16 0505 03/04/16 0505 Results 24 hrs Laboratory Tests Test 03/03/16 12:46 03/03/16 16:24 03/03/16 19:45 03/04/16 05:05 Bedside Glucose 191 94 171 Alanine Aminotransferase (ALT/SGPT) 77 H Albumin 3.2 L Albumin/Globulin Ratio 0.96 Alkaline Phosphatase 121 Anion Gap 12 Aspartate Amino Transf (AST/SGOT) 63 H Basophils # 0.0 Basophils % 0.3 Blood Urea Nitrogen 5 L Calcium Level 7.9 L Carbon Dioxide Level 29 Chloride Level 104 Creatinine 0.58 Direct Bilirubin 0.00 Eosinophils # 0.1 Eosinophils % 1.1 Globulin 3.30 H Glucose Level 165 Hematocrit 38.1 Hemoglobin 12.6 Indirect Bilirubin 0.4 Lymphocytes # 2.9 Lymphocytes % 35.9 Magnesium Level 2.2 Mean Corpuscular Hemoglobin 30.2 Mean Corpuscular Hemoglobin Concent 33.2 Mean Corpuscular Volume 90.8 Mean Platelet Volume 9.2 Monocytes # 0.8 Monocytes % 9.8 Neutrophils # 4.2 Neutrophils % 52.9 Nucleated Red Blood Cells # 0.0 Nucleated Red Blood Cells % 0.0 Phosphorus Level 4.7 Platelet Count 287 Potassium Level 3.4 L Red Blood Count 4.19 L Red Cell Distribution Width 13.0 Sodium Level 142 Total Bilirubin 0.4 Total Protein 6.5 White Blood Count 8.0 Test 03/04/16 08:00 Bedside Glucose 170 Medications Medications Current Medications Dextrose/Sodium Chloride (D5-1/2ns) 1,000 ml @ 100 mls/hr Q10H IV Last administered on 03/04/16 00:34; Admin Dose 100 MLS/HR; Start 03/01/16 at 19:28 Ondansetron HCl (Zofran Inj) 4 mg Q6H PRN IV NAUSEA AND/OR VOMITING Last administered on 03/03/16 08:47; Admin Dose 4 MG; Start 03/01/16 at 19:30 Acetaminophen (Tylenol Tab) 650 mg Q6H PRN PO PAIN LEVEL 1-3 OR FEVER Last administered on 03/03/16 11:00; Admin Dose 650 MG; Start 03/01/16 at 19:30 Gabapentin (Neurontin) 600 mg BID PO ; Start 03/01/16 at 21:00 Insulin Glargine (Lantus) 40 unit BID SC Last administered on 03/04/16 08:19; Admin Dose 40 UNIT; Start 03/01/16 at 21:00 Losartan Potassium (Cozaar) 100 mg DAILY PO Last administered on 03/04/16 08:14 ; Admin Dose 100 MG; Start 03/02/16 at 09:00 Pregabalin (Lyrica) 150 mg BID PO ; Start 03/01/16 at 21:00 Miscellaneous Information 1 ea NOTE XX ; Start 03/01/16 at 20:00 Glucose (Glutose) 15 gm Q15M PRN PO DECREASED GLUCOSE; Start 03/01/16 at 20:00 Glucose (Glutose) 22.5 gm Q15M PRN PO DECREASED GLUCOSE; Start 03/01/16 at 20:00 Dextrose (D50w Syringe) 25 ml Q15M PRN IV DECREASED GLUCOSE; Start 03/01/16 at 20:00 Dextrose (D50w Syringe) 50 ml Q15M PRN IV DECREASED GLUCOSE; Start 03/01/16 at 20:00 Glucagon (Glucagen) 1 mg Q15M PRN IM DECREASED GLUCOSE; Start 03/01/16 at 20:00 Glucose (Glutose) 15 gm Q15M PRN BUCCAL DECREASED GLUCOSE; Start 03/01/16 at 20: 00 Pantoprazole (Protonix Iv) 40 mg BID@06,18 IV Last administered on 03/04/16 05: 18; Admin Dose 40 MG; Start 03/01/16 at 22:40 Phenol (Cepastat Lozenge) 1 lozenge Q1H PRN MT SORE THROAT; Start 03/02/16 at 13 :00 Morphine Sulfate (morphine) 4 mg Q3H PRN IV SEVERE PAIN LEVEL 7-10 Last administered on 03/04/16 07:10; Admin Dose 4 MG; Start 03/03/16 at 13:30 Procedures Procedures GI recommendations: Abdominal pain, evaluate for PUD * Recommend EGD * PPI therapy Hematochezia * Recommend colonoscopy MEAGAN WOODRUFF Mar 04, 2016 08:42
[2016-03-04] MEDS ORDERED: POTASSIUM CHLORIDE 250 ML IVPB ONE (10:00)
[2016-03-04] MEDS ORDERED: PROPOFOL 40 ML ONE (16:45)
[2016-03-04] MEDS ORDERED: MIDAZOLAM 1 MG/ML 2 ML INJ ONE ×2 (16:48)
[2016-03-04] MEDS: ONDANSETRON 4 MG INJ IV PRN (21:48)
[2016-03-05] MEDS: DEXTROSE 5%-0.45% NACL 1,000 ML IV SCH ×3 (00:46→20:28)
[2016-03-05] MEDS: morphine 4 MG/ML VIAL IV PRN ×8 (00:48→23:15)
[2016-03-05] MEDS: PANTOPRAZOLE 40 MG INJ IV SCH ×2 (06:47→18:27)
[2016-03-05 06:54] LABS: BASOPHILS % 0.5 % (0.0-2.0); EOSINOPHILS # 0.1 10^3/ul (0.0-0.5); EOSINOPHILS % 1.5 % (0.0-7.0); HEMATOCRIT 38.2 % (37.0-47.0); HEMOGLOBIN 12.7 g/dl (12.0-16.0); LYMPHOCYTES # 3.1 10^3/ul (0.8-2.9); LYMPHOCYTES % 39.4 % (15.0-51.0); MEAN CORPUSCULAR HEMOGLOBIN 30.1 pg (29.0-33.0); MEAN CORPUSCULAR HGB CONC 33.4 g/dl (32.0-37.0); MEAN CORPUSCULAR VOLUME 90.3 fl (82.0-101.0); MEAN PLATELET VOLUME 9.5 fl (7.4-10.4); MONOCYTE # 0.8 10^3/ul (0.3-0.9); MONOCYTES % 9.9 % (0.0-11.0); NEUTROPHIL # 3.8 10^3/ul (1.6-7.5); NEUTROPHILS % 48.7 % (39.0-77.0); PLATELET COUNT 291 10^3/UL (140-440); RED BLOOD COUNT 4.23 10^6/ul (4.20-5.40); UNCORRECTED WBC 7.8 10^3/ul (4.8-10.8); WHITE BLOOD COUNT 7.8 10^3/ul (4.8-10.8)
[2016-03-05 06:56] LABS: CONDITION 1
[2016-03-05 07:14] LABS: POTASSIUM 3.6 mmol/L (3.5-5.1)
[2016-03-05 07:16] LABS: CREATININE 0.65 mg/dl (0.44-1.00)
[2016-03-05 07:17] LABS: CALCIUM 8.4 mg/dl (8.4-10.2)
[2016-03-05 07:20] VITALS: BP 139/63; RESP 20
[2016-03-05] MEDS: INSULIN ASPART [NOVOLOG] 3 ML PEN SC SCH ×7 (08:54→20:18)
[2016-03-05] MEDS: GABAPENTIN 300 MG CAP PO SCH ×2 (08:56→20:13)
[2016-03-05] MEDS: LOSARTAN 50 MG TAB PO SCH (08:56)
[2016-03-05] MEDS: PREGABALIN 75 MG CAP PO SCH ×2 (08:57→20:13)
[2016-03-05] MEDS: INSULIN GLARGINE [LANtus] 3 ML PEN SC SCH ×2 (08:59→20:20)
--- NOTE | 2016-03-05 12:20 | CONS ---
Date/Time of Note Date/Time of Note DATE: 03/05/16 TIME: 12:18 Assessment/Plan Assessment/Plan Additional Assessment/Plan Abdominal pain, evaluate for PUD * EGD 03-04-16 * Moderate gastritis * Biopsies in process * Continue PPI therapy Hematochezia, likely secondary to hemorrhoids * Colonoscopy 03-04-16 * Moderate to large internal hemorrhoids * Otherwise normal colonoscopy Hypertension Type 2 diabetes Obesity Fibromyalgia Chronic back pain Further recommendations depend on clinical course Patient seen in collaboration with Dr. Moeller Consultation Date/Type/Reason Admit Date/Time Mar 01, 2016 at 18:28 Initial Consult Date Type of Consultation: Gastroenterology Reason for Consultation Abdominal pain 24 HR Interval Summary Free Text/Dictation States abdominal pain is unchanged Advised her of EGD and colonoscopy results We will continue PPI therapy Awaiting pathology Exam/Review of Systems Vital Signs Vitals Vital Signs Date Time Temp Pulse Resp B/P Pulse Ox O2 Delivery O2 Flow Rate FiO2 03/05/16 07:20 98.0 86 20 139/63 96 03/04/16 20:00 Room Air 03/04/16 17:14 2.0 Intake and Output 03/04/16 03/04/16 03/05/16 14:59 22:59 06:59 Intake Total 500 ml 790 ml 810 ml Balance 500 ml 790 ml 810 ml Exam Constitutional: alert, obese, oriented, well developed Psych: nl mood/affect Eyes: EOMI ENMT: nl external ears & nose, nl lips & teeth, nl nasal mucosa & septum Respiratory: normal air movement Cardiovascular: regular rate and rhythm Gastrointestinal: soft, non-tender Neurological: UNDERWEAR WELTER II-XII intact Results Result Diagram: 03/05/16 0508 03/05/16 0508 Results 24 hrs Laboratory Tests Test 03/04/16 12:20 03/04/16 18:01 03/04/16 21:46 03/05/16 05:08 Bedside Glucose 121 117 154 Anion Gap 13 Basophils # 0.0 Basophils % 0.5 Blood Urea Nitrogen 6 L Calcium Level 8.4 Carbon Dioxide Level 30 Chloride Level 105 Creatinine 0.65 Eosinophils # 0.1 Eosinophils % 1.5 Glucose Level 176 Hematocrit 38.2 Hemoglobin 12.7 Lymphocytes # 3.1 H Lymphocytes % 39.4 Magnesium Level 2.0 Mean Corpuscular Hemoglobin 30.1 Mean Corpuscular Hemoglobin Concent 33.4 Mean Corpuscular Volume 90.3 Mean Platelet Volume 9.5 Monocytes # 0.8 Monocytes % 9.9 Neutrophils # 3.8 Neutrophils % 48.7 Nucleated Red Blood Cells # 0.0 Nucleated Red Blood Cells % 0.0 Platelet Count 291 Potassium Level 3.6 Red Blood Count 4.23 Red Cell Distribution Width 13.0 Sodium Level 144 White Blood Count 7.8 Test 03/05/16 08:22 03/05/16 12:02 Bedside Glucose 173 176 Medications Medications Current Medications Dextrose/Sodium Chloride (D5-1/2ns) 1,000 ml @ 100 mls/hr Q10H IV Last administered on 03/05/16 10:31; Admin Dose 100 MLS/HR; Start 03/01/16 at 19:28 Ondansetron HCl (Zofran Inj) 4 mg Q6H PRN IV NAUSEA AND/OR VOMITING Last administered on 03/04/16 21:48; Admin Dose 4 MG; Start 03/01/16 at 19:30 Acetaminophen (Tylenol Tab) 650 mg Q6H PRN PO PAIN LEVEL 1-3 OR FEVER Last administered on 03/03/16 11:00; Admin Dose 650 MG; Start 03/01/16 at 19:30 Gabapentin (Neurontin) 600 mg BID PO Last administered on 03/05/16 08:56; Admin Dose 600 MG; Start 03/01/16 at 21:00 Insulin Glargine (Lantus) 40 unit BID SC Last administered on 03/05/16 08:59; Admin Dose 40 UNIT; Start 03/01/16 at 21:00 Losartan Potassium (Cozaar) 100 mg DAILY PO Last administered on 03/05/16 08:56 ; Admin Dose 100 MG; Start 03/02/16 at 09:00 Pregabalin (Lyrica) 150 mg BID PO ; Start 03/01/16 at 21:00 Miscellaneous Information 1 ea NOTE XX ; Start 03/01/16 at 20:00 Glucose (Glutose) 15 gm Q15M PRN PO DECREASED GLUCOSE; Start 03/01/16 at 20:00 Glucose (Glutose) 22.5 gm Q15M PRN PO DECREASED GLUCOSE; Start 03/01/16 at 20:00 Dextrose (D50w Syringe) 25 ml Q15M PRN IV DECREASED GLUCOSE; Start 03/01/16 at 20:00 Dextrose (D50w Syringe) 50 ml Q15M PRN IV DECREASED GLUCOSE; Start 03/01/16 at 20:00 Glucagon (Glucagen) 1 mg Q15M PRN IM DECREASED GLUCOSE; Start 03/01/16 at 20:00 Glucose (Glutose) 15 gm Q15M PRN BUCCAL DECREASED GLUCOSE; Start 03/01/16 at 20: 00 Pantoprazole (Protonix Iv) 40 mg BID@06,18 IV Last administered on 03/05/16 06: 47; Admin Dose 40 MG; Start 03/01/16 at 22:40 Phenol (Cepastat Lozenge) 1 lozenge Q1H PRN MT SORE THROAT; Start 03/02/16 at 13 :00 Morphine Sulfate (morphine) 4 mg Q3H PRN IV SEVERE PAIN LEVEL 7-10 Last administered on 03/05/16 10:31; Admin Dose 4 MG; Start 03/03/16 at 13:30 MIGUE SINGH Mar 05, 2016 12:20
--- NOTE | 2016-03-05 12:39 | GILP ---
DATE OF PROCEDURE: NAME OF PROCEDURE: Colonoscopy to cecum. SURGEON: Marie Moeller MD. HISTORY AND INDICATIONS: The patient is being evaluated for rectal bleeding. PREMEDICATION: Monitored anesthesia care by anesthesiologist. INSTRUMENT USED: Olympus colonoscope. PREPARATION: Adequate. TECHNIQUE: After informed consent, with the patient/relatives understanding the procedure, its indic ations potential risks and complications, including but not limited to: allergic reaction, bleeding, perforation, infection, missed lesions and after all pertinent questions were answered to the patie nt's satisfaction, the patient/relatives signed the witnessed informed consent. Following this, premedication was administered slowly IV push by under careful cardiovascular and re spiratory monitoring with pulse oximetry, automatic blood pressure and residential monitor. Once the sedativ e effect was achieved, the patient was placed in the left lateral decubitus position, digital rectal examination was performed. The colonoscope was then introduced and advanced under visual control th roughout all segments of the colon including: the rectum, sigmoid, descending colon, splenic flexure , transverse colon, hepatic flexure, ascending colon and finally reaching the cecum which was clearl y identified by transillumination, finger indentation and the ileocecal valve. Careful examination o f the mucosa of the lower gastrointestinal tract both on insertion as well as withdrawal of the inst rument disclosed the following findings: Rectal Examination: Small external hemorrhoids are noted. Colonic Mucosa: The colonic mucosa is entirely unremarkable throughout. The ileocecal valve was abhilash red identified and appears unremarkable. The instrument was then withdrawn. No additional abnorma lities were noted with the exception of moderate-sized internal hemorrhoids. IMPRESSION: 1. Moderate to large internal hemorrhoids. 2. Otherwise normal colonoscopy to cecum. PLAN: Continue present regimen. Conservative management of hemorrhoidal ____ will be instituted. H er diet will be advanced as tolerated. Preparation was adequate. findings: RECTAL: Small external hemorrhoids are noted. Colonic Mucosa: The colonic mucosa entirely unremarkable throughout the colonic mucosa unremarkable . The ileocecal valve was clearly identified and appears unremarkable. The instrument was withdraw n withdrawal of the instrument, no additional abnormalities are noted with exception of moderate siz ed internal hemorrhoids. IMPRESSION: 1. Moderate large moderate. 2. Moderate to large internal hemorrhoids. 3. Otherwise, normal colonoscopy to cecum. PLAN: The patient will be continued on present regimen. Conservative management of hemorrhoidal di sease will be instituted. Her diet will be advanced as tolerated. Dictated By: MARIE MOELLER MS/HALEY Conf#: [id number] DID#: [id number] CC: MARIE MOELLER;*EndCC*
--- NOTE | 2016-03-05 12:41 | GILP ---
DATE OF PROCEDURE: PROCEDURE: Esophagogastroduodenoscopy with biopsies. BRIEF HISTORY AND INDICATIONS: The patient is being evaluated for abdominal pain and evidence of ga strointestinal bleeding. PREMEDICATION: Monitored anesthesia care by anesthesiologist. INSTRUMENT USED: TECHNIQUE: After informed consent, with the patient/relatives understanding the procedure, its amadou cations, potential risks and complications, including but not limited to: allergic reaction, bleedin g, perforation or infection, and after all pertinent questions were answered to the patients satisfa ction, the patient/relatives signed witnessed informed consent. Following this, premedication was administered slowly IV push under careful cardiovascular and respi ratory monitoring with pulse oximetry, automatic blood pressure and traffic monitor specialist. Once the sedative effect was achieved the patient was place in the left lateral decubitus, the panen doscope was introduced and advanced under visual control. Careful examination of the upper gastrointestinal tract, both on insertion as well as withdrawal of the instrument disclosed the following findings: ESOPHAGUS: The mucosa of the entire esophagus appears within normal limits. There is no evidence of esophagitis, varices, neoplasm or stricture. No hiatal hernia identified. STOMACH: Upon entrance to the stomach, air was insufflated, the gastric brock distended normally. The mucosa of the fundus, body and antrum of the stomach was carefully examined, shows erythema and edema of the mucosa of a moderate degree. Biopsies were obtained to rule out H. pylori infection. PYLORUS: The pylorus appears patent and within normal limits, with no evidence of gastric outlet ob struction. DUODENUM: The duodenal mucosa was carefully examined in the duodenal bulb as well as the second por tion of the duodenum and appears unremarkable with no evidence of duodenitis, ulcer or neoplasm. The instrument was then withdrawn, the patient tolerated the procedure well and was transfer out of the endoscopy suite awake, and in good condition to continue recovery under observation IMPRESSION: Moderate gastritis, rule out. pylori infection, biopsies obtained. PLAN: The patient will be treated with PPIs. Pathology will be reviewed as soon as available. We will proceed with colonoscopy as planned. Dictated By: MEDINA BLACKBURN Conf#: [id number] DID#: [id number]
[2016-03-05] MEDS ORDERED: HYDROCODONE/APAP (10/325) TAB PO PRN (16:00)
[2016-03-05 20:00] VITALS: BP 138/71; RESP 20
[2016-03-05 20:16] VITALS: BP 138/71; RESP 20
--- NOTE | 2016-03-06 00:02 | PN ---
Date/Time of Note Date/Time of Note DATE: 03/05/16 TIME: 11:02 Assessment/Plan VTE Prophylaxis VTE Prophylaxis Intervention: SCD's Lines/Catheters IV C[facility]ter Type ([facility] Peripheral IV Urinary Cath still in place: No Assessment/Plan Assessment/Plan 1. Abdominal pain. Etiology unclear. The patient has history of colitis. She also has a history of esophagitis and patchy gastritis. CT scan of the abdomen and pelvis negative for any acute findings. 2. Reported hematochezia. Will monitor the H&H closely. Continue proton pump inhibitors. upper and lower endoscopy showed gastritis and hemorrhoid 3. Type 2 diabetes mellitus. Continue sliding scale insulin. Hemoglobin A1c 9.9. 4. Essential hypertension. Continue antihypertensives. 5. Fibromyalgia. Consider d/c lyrica in view of GI symptoms 6. Transaminitis without hyperbilirubinemia. Etiology unclear. Avoid hepatotoxic medications. Continue to monitor. 7. Fluids, electrolytes, and nutrition. Clear liquids. Continue IV fluids. 8. Gastrointestinal prophylaxis. Proton pump inhibitors. 9. DVT prophylaxis. Bilateral SCDs. DISP: pt still with significant abd pain. once stable and determine that no additional work-up is needed, will discharge Subjective 24 Hr Interval Summary Free Text/Dictation c/o ongoing abd pain Exam/Review of Systems Vital Signs Vitals Vital Signs Date Time Temp Pulse Resp B/P Pulse Ox O2 Delivery O2 Flow Rate FiO2 03/05/16 20:16 98.5 94 20 138/71 96 03/04/16 20:00 Room Air 03/04/16 17:14 2.0 Intake and Output 03/05/16 03/05/16 03/06/16 15:00 23:00 07:00 Intake Total 1780 ml Balance 1780 ml Exam Constitutional: alert, obese, oriented Head: atraumatic, normocephalic Eyes: EOMI, PERRL Neck: non-tender, supple Respiratory: clear to auscultation, normal air movement Cardiovascular: other (tachycardic with regular rhythm) Gastrointestinal: soft, tender Extremities: normal pulses Results Result Diagram: 03/05/16 0508 03/05/16 0508 Results 24 hrs Laboratory Tests Test 03/05/16 05:08 03/05/16 08:22 03/05/16 12:02 03/05/16 17:36 Anion Gap 13 Basophils # 0.0 Basophils % 0.5 Blood Urea Nitrogen 6 L Calcium Level 8.4 Carbon Dioxide Level 30 Chloride Level 105 Creatinine 0.65 Eosinophils # 0.1 Eosinophils % 1.5 Glucose Level 176 Hematocrit 38.2 Hemoglobin 12.7 Lymphocytes # 3.1 H Lymphocytes % 39.4 Magnesium Level 2.0 Mean Corpuscular Hemoglobin 30.1 Mean Corpuscular Hemoglobin Concent 33.4 Mean Corpuscular Volume 90.3 Mean Platelet Volume 9.5 Monocytes # 0.8 Monocytes % 9.9 Neutrophils # 3.8 Neutrophils % 48.7 Nucleated Red Blood Cells # 0.0 Nucleated Red Blood Cells % 0.0 Platelet Count 291 Potassium Level 3.6 Red Blood Count 4.23 Red Cell Distribution Width 13.0 Sodium Level 144 White Blood Count 7.8 Bedside Glucose 173 176 145 Test 03/05/16 20:17 Bedside Glucose 176 Medications Medications Current Medications Dextrose/Sodium Chloride (D5-1/2ns) 1,000 ml @ 100 mls/hr Q10H IV Last administered on 03/05/16 20:28; Admin Dose 100 MLS/HR; Start 03/01/16 at 19:28 Ondansetron HCl (Zofran Inj) 4 mg Q6H PRN IV NAUSEA AND/OR VOMITING Last administered on 03/04/16 21:48; Admin Dose 4 MG; Start 03/01/16 at 19:30 Acetaminophen (Tylenol Tab) 650 mg Q6H PRN PO PAIN LEVEL 1-3 OR FEVER Last administered on 03/03/16 11:00; Admin Dose 650 MG; Start 03/01/16 at 19:30 Gabapentin (Neurontin) 600 mg BID PO Last administered on 03/05/16 08:56; Admin Dose 600 MG; Start 03/01/16 at 21:00 Insulin Glargine (Lantus) 40 unit BID SC Last administered on 03/05/16 20:20; Admin Dose 40 UNIT; Start 03/01/16 at 21:00 Losartan Potassium (Cozaar) 100 mg DAILY PO Last administered on 03/05/16 08:56 ; Admin Dose 100 MG; Start 03/02/16 at 09:00 Pregabalin (Lyrica) 150 mg BID PO ; Start 03/01/16 at 21:00 Miscellaneous Information 1 ea NOTE XX ; Start 03/01/16 at 20:00 Glucose (Glutose) 15 gm Q15M PRN PO DECREASED GLUCOSE; Start 03/01/16 at 20:00 Glucose (Glutose) 22.5 gm Q15M PRN PO DECREASED GLUCOSE; Start 03/01/16 at 20:00 Dextrose (D50w Syringe) 25 ml Q15M PRN IV DECREASED GLUCOSE; Start 03/01/16 at 20:00 Dextrose (D50w Syringe) 50 ml Q15M PRN IV DECREASED GLUCOSE; Start 03/01/16 at 20:00 Glucagon (Glucagen) 1 mg Q15M PRN IM DECREASED GLUCOSE; Start 03/01/16 at 20:00 Glucose (Glutose) 15 gm Q15M PRN BUCCAL DECREASED GLUCOSE; Start 03/01/16 at 20: 00 Pantoprazole (Protonix Iv) 40 mg BID@,18 IV Last administered on 03/05/16 18: 27; Admin Dose 40 MG; Start 03/01/16 at 22:40 Phenol (Cepastat Lozenge) 1 lozenge Q1H PRN MT SORE THROAT; Start 03/02/16 at 13 :00 Morphine Sulfate (morphine) 4 mg Q3H PRN IV SEVERE PAIN LEVEL 7-10 Last administered on 03/05/16 23:15; Admin Dose 4 MG; Start 03/03/16 at 13:30 Acetaminophen/ Hydrocodone Bitart ([place] (10/325)) 1 tab Q4H PRN PO PAIN; Start 03/05/16 at 16:00 DANIELLE EASLEY MD Mar 06, 2016 00:02
[2016-03-06] MEDS: morphine 4 MG/ML VIAL IV PRN ×6 (03:46→19:17)
[2016-03-06 05:50] LABS: BASOPHILS % 0.4 % (0.0-2.0); EOSINOPHILS # 0.1 10^3/ul (0.0-0.5); EOSINOPHILS % 1.7 % (0.0-7.0); HEMATOCRIT 36.7 % (37.0-47.0); HEMOGLOBIN 12.5 g/dl (12.0-16.0); LYMPHOCYTES # 2.8 10^3/ul (0.8-2.9); LYMPHOCYTES % 37.4 % (15.0-51.0); MEAN CORPUSCULAR HEMOGLOBIN 30.6 pg (29.0-33.0); MEAN CORPUSCULAR HGB CONC 33.9 g/dl (32.0-37.0); MEAN CORPUSCULAR VOLUME 90.3 fl (82.0-101.0); MEAN PLATELET VOLUME 9.4 fl (7.4-10.4); MONOCYTE # 0.7 10^3/ul (0.3-0.9); MONOCYTES % 8.9 % (0.0-11.0); NEUTROPHIL # 3.9 10^3/ul (1.6-7.5); NEUTROPHILS % 51.6 % (39.0-77.0); PLATELET COUNT 280 10^3/UL (140-440); POTASSIUM 3.7 mmol/L (3.5-5.1); RED BLOOD COUNT 4.07 10^6/ul (4.20-5.40); UNCORRECTED WBC 7.5 10^3/ul (4.8-10.8); WHITE BLOOD COUNT 7.5 10^3/ul (4.8-10.8)
[2016-03-06 05:53] LABS: CREATININE 0.61 mg/dl (0.44-1.00)
[2016-03-06 05:54] LABS: CALCIUM 8.1 mg/dl (8.4-10.2)
[2016-03-06 06:09] LABS: CONDITION 1
[2016-03-06] MEDS: DEXTROSE 5%-0.45% NACL 1,000 ML IV SCH (06:31)
[2016-03-06] MEDS: PANTOPRAZOLE 40 MG INJ IV SCH ×2 (06:34→19:09)
[2016-03-06 08:19] VITALS: BP 134/62; RESP 20
[2016-03-06] MEDS: PREGABALIN 75 MG CAP PO SCH (09:00)
[2016-03-06] MEDS: GABAPENTIN 300 MG CAP PO SCH (09:04)
[2016-03-06] MEDS: LOSARTAN 50 MG TAB PO SCH (09:05)
[2016-03-06] MEDS: INSULIN ASPART [NOVOLOG] 3 ML PEN SC SCH ×6 (09:07→19:09)
[2016-03-06] MEDS: INSULIN GLARGINE [LANtus] 3 ML PEN SC SCH (09:10)
--- NOTE | 2016-03-06 09:37 | CONS ---
Date/Time of Note Date/Time of Note DATE: 03/06/16 TIME: 09:34 Assessment/Plan Assessment/Plan Additional Assessment/Plan Abdominal pain, evaluate for PUD * EGD 03-04-16 * Moderate gastritis * Biopsies in process * Continue PPI therapy Hematochezia, likely secondary to hemorrhoids * Colonoscopy 03-04-16 * Moderate to large internal hemorrhoids * Otherwise normal colonoscopy Hypertension Type 2 diabetes Obesity Fibromyalgia Chronic back pain Further recommendations depend on clinical course Patient seen in collaboration with Dr. Moeller Consultation Date/Type/Reason Admit Date/Time Mar 01, 2016 at 18:28 Type of Consultation: Gastroenterology 24 HR Interval Summary Free Text/Dictation Patient continues to report intense epigastric abdominal pain Will order CT of abdomen and pelvis with and without contrast evaluate Exam/Review of Systems Vital Signs Vitals Vital Signs Date Time Temp Pulse Resp B/P Pulse Ox O2 Delivery O2 Flow Rate FiO2 03/06/16 08:19 98.9 86 20 134/62 97 03/05/16 20:00 Room Air 03/04/16 17:14 2.0 Intake and Output 03/05/16 03/05/16 03/06/16 15:00 23:00 07:00 Intake Total 2080 ml 1200 ml Balance 2080 ml 1200 ml Exam Constitutional: alert, obese, oriented, well developed Psych: nl mood/affect Eyes: EOMI ENMT: nl external ears & nose, nl lips & teeth, nl nasal mucosa & septum Respiratory: normal air movement Cardiovascular: regular rate and rhythm Gastrointestinal: soft, non-tender Neurological: SHOTBLASTER II-XII intact Results Result Diagram: 03/06/16 0502 03/06/16 0502 Results 24 hrs Laboratory Tests Test 03/05/16 12:02 03/05/16 17:36 03/05/16 20:17 03/06/16 05:02 Bedside Glucose 176 145 176 Anion Gap 13 Basophils # 0.0 Basophils % 0.4 Blood Urea Nitrogen 7 Calcium Level 8.1 L Carbon Dioxide Level 30 Chloride Level 102 Creatinine 0.61 Eosinophils # 0.1 Eosinophils % 1.7 Glucose Level 190 Hematocrit 36.7 L Hemoglobin 12.5 Lymphocytes # 2.8 Lymphocytes % 37.4 Mean Corpuscular Hemoglobin 30.6 Mean Corpuscular Hemoglobin Concent 33.9 Mean Corpuscular Volume 90.3 Mean Platelet Volume 9.4 Monocytes # 0.7 Monocytes % 8.9 Neutrophils # 3.9 Neutrophils % 51.6 Nucleated Red Blood Cells # 0.0 Nucleated Red Blood Cells % 0.0 Platelet Count 280 Potassium Level 3.7 Red Blood Count 4.07 L Red Cell Distribution Width 13.0 Sodium Level 141 White Blood Count 7.5 Test 03/06/16 08:00 Bedside Glucose 195 Medications Medications Current Medications Dextrose/Sodium Chloride (D5-1/2ns) 1,000 ml @ 100 mls/hr Q10H IV Last administered on 03/06/16 06:31; Admin Dose 100 MLS/HR; Start 03/01/16 at 19:28 Ondansetron HCl (Zofran Inj) 4 mg Q6H PRN IV NAUSEA AND/OR VOMITING Last administered on 03/04/16 21:48; Admin Dose 4 MG; Start 03/01/16 at 19:30 Acetaminophen (Tylenol Tab) 650 mg Q6H PRN PO PAIN LEVEL 1-3 OR FEVER Last administered on 03/03/16 11:00; Admin Dose 650 MG; Start 03/01/16 at 19:30 Gabapentin (Neurontin) 600 mg BID PO Last administered on 03/06/16 09:04; Admin Dose 600 MG; Start 03/01/16 at 21:00 Insulin Glargine (Lantus) 40 unit BID SC Last administered on 03/06/16 09:10; Admin Dose 40 UNIT; Start 03/01/16 at 21:00 Losartan Potassium (Cozaar) 100 mg DAILY PO Last administered on 03/06/16 09:05 ; Admin Dose 100 MG; Start 03/02/16 at 09:00 Pregabalin (Lyrica) 150 mg BID PO ; Start 03/01/16 at 21:00 Miscellaneous Information 1 ea NOTE XX ; Start 03/01/16 at 20:00 Glucose (Glutose) 15 gm Q15M PRN PO DECREASED GLUCOSE; Start 03/01/16 at 20:00 Glucose (Glutose) 22.5 gm Q15M PRN PO DECREASED GLUCOSE; Start 03/01/16 at 20:00 Dextrose (D50w Syringe) 25 ml Q15M PRN IV DECREASED GLUCOSE; Start 03/01/16 at 20:00 Dextrose (D50w Syringe) 50 ml Q15M PRN IV DECREASED GLUCOSE; Start 03/01/16 at 20:00 Glucagon (Glucagen) 1 mg Q15M PRN IM DECREASED GLUCOSE; Start 03/01/16 at 20:00 Glucose (Glutose) 15 gm Q15M PRN BUCCAL DECREASED GLUCOSE; Start 03/01/16 at 20: 00 Pantoprazole (Protonix Iv) 40 mg BID@06,18 IV Last administered on 03/06/16 06: 34; Admin Dose 40 MG; Start 03/01/16 at 22:40 Phenol (Cepastat Lozenge) 1 lozenge Q1H PRN MT SORE THROAT; Start 03/02/16 at 13 :00 Morphine Sulfate (morphine) 4 mg Q3H PRN IV SEVERE PAIN LEVEL 7-10 Last administered on 03/06/16 06:38; Admin Dose 4 MG; Start 03/03/16 at 13:30 Acetaminophen/ Hydrocodone Bitart ([place] (10/325)) 1 tab Q4H PRN PO PAIN; Start 03/05/16 at 16:00 MIGUE SINGH Mar 06, 2016 09:37
[2016-03-06 09:44] LABS: ALBUMIN 3.2 g/dl (3.3-4.9)
[2016-03-06 09:47] LABS: BILIRUBIN,INDIRECT 0.2 mg/dl (0-1.1); BILIRUBIN,TOTAL 0.2 mg/dl (0.2-1.3); TOTAL PROTEIN 6.4 g/dl (6.1-8.1)
[2016-03-06] MEDS ORDERED: SOD CHLORIDE 0.9% 100 ML ONE (12:38)
[2016-03-06] MEDS ORDERED: IOHEXOL 300MG/ML 150 ML BTL ONE (12:38)
--- NOTE | 2016-03-06 13:15 | RADRPT ---
PROCEDURE: CT Abdomen and Pelvis without and with intravenous contrast. CLINICAL INDICATION: Abdominal and pelvic pain. TECHNIQUE: CT scan of the abdomen and pelvis without and with intravenous contrast was performed. 100 ml Omnipaque-300 was used for the intravenous contrast. Coronal and sagittal reformatted images were obtained from the axial source images. Images were reviewed on a high-resolution PACS workstati on. Total exam DLP is 2904.64 mGy-cm. CTDIvol is 23.74 mGy. One or more of the following dose redu ction techniques were used: Automated exposure control, adjustment of the mA and/or kV according to patient size, use of iterative reconstruction technique. COMPARISON: None. FINDINGS: The lung bases are normal. There is no pleural effusion. The liver is normal in size and diffusely decreased in attenuation. There is no focal hepatic lesio n. The gallbladder is surgically absent with clips noted in the gallbladder bed. The bile ducts are no rmal. The spleen is normal in size. There is no focal splenic lesion. Both adrenals are normal with no enlargement or mass. The pancreas is unremarkable with no mass or evidence of pancreatitis. There is no renal mass or hydronephrosis. There is no renal calculus or ureteral calculus. Both kid neys demonstrate normal contrast enhancement. The abdominal aorta is not dilated. Vascular calcifications are present consistent with atherosclero sis. There is no retroperitoneal lymphadenopathy or mass. There is no pelvic lymphadenopathy or mass. The bladder and distal ureters are normal. The appendix is well seen and appears normal. There is diverticulosis of the colon. The bowel and mesentery are otherwise normal. There is no free fluid or free gas. There are degenerative changes of the spine. The osseous structures are otherwise unremarkable with no fracture or lytic lesion. IMPRESSION: 1. Status post cholecystectomy. 2. Fatty metamorphosis of the liver. 3. No urinary tract calculus or hydronephrosis. 4. Diverticulosis of the colon without evidence of diverticulitis. 5. Atherosclerosis. 6. Normal appendix. 7. Degenerative changes of the spine. 8. Otherwise unremarkable study. 9. No change from 03/02/2016. RPTAT: QQ .Jason Fox MD, MD Date Time Electronically viewed and signed by .Jason Fox MD, MD on 03/06/2016 13:14 .R/
[2016-03-06] MEDS ORDERED: PANT40TA3 PO (14:47)
--- NOTE | 2016-03-06 14:52 | PDOCDIS ---
Discharge Instructions DIAGNOSIS Discharge Diagnosis: Gastritis, Hemorrhoids CONDITION Patient Condition: Stable HOME CARE INSTRUCTIONS: Special Diet: 1500 gregory diet/low acid diet ACTIVITY: Activity Restrictions: Slowly Increase Activity Rest between Activity Avoid heavy lifting FOLLOW UP/APPOINTMENTS Appointments follow up with Dr. Moeller in 2 weeks. follow up with primary care physician in one week. OTHER ORDERS: Other Orders: Gastritis/Hemorrhoids - take the medications as prescribed. Eat six small meals. No fatty, greasy foods, chocolate, mint, acidic foods/spicy foods, ETOH MARTINA KRISHNAMURTHY MD Mar 06, 2016 14:52
--- NOTE | 2016-03-06 15:38 | DS ---
DATE OF ADMISSION: 03/01/2016 DATE OF DISCHARGE: 03/06/2016 DISCHARGE DIAGNOSES: 1. Abdominal pain secondary to gastritis and moderate hemorrhoids. 2. Hematochezia secondary to moderate hemorrhoids. 3. Type 2 diabetes, uncontrolled. 4. Hemoglobin A1c 9.9. 5. Essential hypertension. 6. Fibromyalgia. 7. Transaminitis without hyperbilirubinemia. 8. Morbid obesity. 9. Chronic pain, at this time. HOSPITAL COURSE: A 60-year-old female with aforementioned diagnoses who comes in because of abdominal pain, worsening for the last 2 weeks, especially when she eats, nausea, vomiting and GI bleed. She was admitted to med/surg for further evaluation and treatment. Consultants on case was GI. She does use NSAIDs on a regular basis and was told to refrain from using as many at this time. INITIAL IMAGING: She had a CT abdomen and pelvis done 03/02/2016 showing: No acute intraabdominal processes identified. Status post cholecystectomy, hepatic steatosis noted. Then she had repeat CT abdomen and pelvis done today showin. Status post cholecystectomy. 2. Fatty metamorphosis of the liver. 3. No urinary tract calculus or hydronephrosis. 4. Diverticulosis of the colon without evidence of diverticulitis. 5. Atherosclerosis. 6. Normal appendix. 7. Degenerative changes of the spine. 8. Otherwise unremarkable study. 9. No change from 03/02/2016. Initial laboratory findings had shown a white count 8, H and H 12.2 and 37.0 with platelets of 245. Currently, white count 7.5, H and H 12.5 and 36.7, platelets of 280. Chemistry initially had shown sodium 141, potassium 3.6, chloride 103, carbon dioxide 30, anion gap 12, BUN and creatinine 9 and 0.59, glucose of 210. Calcium 7.5, magnesium 1.7, which was repleted. Phosphorus 3.8 , AST of 47, ALT of 51, alkaline phosphatase of 101, total bilirubin 0.3, indirect bilirubin 0.3, albumin 3.2, hemoglobin A1c of 9.9, LDL of 95 and HDL 29. TSH 1.59. Iron 74, TIBC of 299, percent sats of 25, ferritin was 52.2. Current labs are within normal limits. Coags were within normal limits as well. The patient did undergo 2 procedures: Echocardiogram was done on 03/01/2016 showin. Normal left ventricular systolic function, normal left ventricular cavity size, mild concentric left ventricular hypertrophy, ejection fraction visually estimated 55%, stage I diastolic dysfunction. 2. No significant valvular stenosis or aortic regurgitation seen. 3. PAP and RA pressure could not be estimated at this time secondary to body habitus. She also had 2 GI procedures, first being a colonoscopy showin. Large to moderate internal hemorrhoids. 2. Normal colonoscopy up to the cecum. EGD had shown moderate gastritis and rule out H. pylori infection. Biopsies were obtained. Patient microbiologies were not completed at this admission. Vitals have been stable. Patient has been afebrile. Pain is still there and I spoke to the patient at length about why the pain is going to be consistent. At this time she needs to refrain from taking NSAIDs as well. She understood at this time as well. I discussed her care plan and she agreed to it. DISPOSITION: Home. CONDITION: Stable. DIET: Going to be low acid and 1500 calorie ADA, small meals, 6 frequently per day. DISCHARGE MEDICATIONS: Include: 1. Protonix 40 mg p.o. b.i.d. 2. Carafate 1 gram q.i.d. with meals, 3. Albuterol inhaled q.4h. p.r.n. 4. Enbrel 50 mg subcutaneous on . 5. Gabapentin 600 mg p.o. b.i.d. 6. [place] p.r.n. 5/325 p.o. q.6h. p.r.n. 7. Ibuprofen will be stopped. 8. Humalog 10 units subcu with meals. 9. Lantus is 40 subq b.i.d. 10. Prevacid is going to be stopped. 11. Losartan 100 mg p.o. daily. 12. Metformin 1000 mg p.o. b.i.d. 13. Lopressor 25 mg p.o. b.i.d. 14. MS Contin 45 mg p.o. b.i.d. 15. Prednisone 4 mg p.o. daily. 16. Lyrica 150 mg p.o. b.i.d. 17. Senna p.r.n. as needed. 18. Ambien 5 mg p.o. p.r.n. FOLLOWUP: The patient will follow up with primary care physician in 1 week. Will follow with Dr. Moeller in 2 weeks. Patient was made aware of this and agreed with plan. COORDINATION OF DISCHARGE: Greater than 40 minutes. Dictated By: MARTINA LAL/HALEY Conf#: [id number] DID#: [id number] MTDD
== END 2016-03-06 19:56 | disposition home or self-care (01) | DRG 392 ==
LOC: E/R 18:20 → PP2 18:28
PROVIDERS: ADMIT Internal Medicine; ATTEND Internal Medicine
PROC: 0DB68ZX Excision of Stomach, Via Natural or Artificial Opening Endoscopic, Diagnostic (ICD-10-PCS; principal; 2016-03-04 17:30)
PROC: 0DJD8ZZ Inspection of Lower Intestinal Tract, Via Natural or Artificial Opening Endoscopic (ICD-10-PCS; 2016-03-04 17:30)
DX: K29.00 Acute gastritis without bleeding (principal); E11.65 Type 2 diabetes mellitus with hyperglycemia; I10 Essential (primary) hypertension; Z68.42 Body mass index [BMI] 45.0-49.9, adult; K64.8 Other hemorrhoids; M79.7 Fibromyalgia; R74.0 Nonspecific elevation of levels of transaminase and lactic acid dehydrogenase [LDH]; E66.01 Morbid (severe) obesity due to excess calories; G89.29 Other chronic pain
CPT/HCPCS: 74176; 74178; 80048; 80053; 80061; 80076; 82728; 82962; 83036; 83540; 83735; 84100; 84443; 85014; 85018; 85025; 85610; 85730; 88305; 88312; 93306; 96374; 96375; C9113; J1170; J1815; J2250; J2270; J2405; J3480; Q9967

== ENCOUNTER 2016-09-20 14:34 | Emergency (ER) | payer OTHER ==
[~2016-09-20] VITALS: Ht 167.6 cm; Wt 122.7 kg
[~2016-09-20 14:34] MED LIST changes: -BACTDS PO; -CEPH-443 PO; -FAMO-18 PO; -IBUP800T25 PO; -LANS30CA47 PO; +PANT40TA3 PO
[2016-09-20 14:41] VITALS: Ht 167.6 cm; Wt 122.7 kg
[2016-09-20] MEDS ORDERED: morphine 4 MG/ML VIAL IV STA ×2 (16:57→18:44)
[2016-09-20] MEDS ORDERED: ONDANSETRON 4 MG INJ IV STA (16:57)
[2016-09-20] MEDS ORDERED: SOD CHLORIDE 0.9% 1,000 ML IV STA (16:57)
[2016-09-20] MEDS ORDERED: ETAN50PE SQ (17:04)
[2016-09-20] MEDS ORDERED: LANT3I SC (17:07)
[2016-09-20 17:08] LABS: BASOPHILS % 0.1 % (0.0-2.0); HEMATOCRIT 40.5 % (37.0-47.0); HEMOGLOBIN 13.5 g/dl (12.0-16.0); LYMPHOCYTES # 1.3 10^3/ul (0.8-2.9); LYMPHOCYTES % 14.2 % (15.0-51.0); MEAN CORPUSCULAR HEMOGLOBIN 30.1 pg (29.0-33.0); MEAN CORPUSCULAR HGB CONC 33.3 g/dl (32.0-37.0); MEAN CORPUSCULAR VOLUME 90.4 fl (82.0-101.0); MEAN PLATELET VOLUME 11.6 fl (7.4-10.4); MONOCYTE # 0.2 10^3/ul (0.3-0.9); MONOCYTES % 2.3 % (0.0-11.0); NEUTROPHIL # 7.6 10^3/ul (1.6-7.5); NEUTROPHILS % 82.2 % (39.0-77.0); PLATELET COUNT 303 10^3/UL (140-415); RED BLOOD COUNT 4.48 10^6/ul (4.20-5.40); RED CELL DISTRIBUTION WIDTH 12.2 % (11.5-14.5); WHITE BLOOD COUNT 9.2 10^3/ul (4.8-10.8)
[2016-09-20] MEDS ORDERED: INSU100I12 SQ (17:09)
[2016-09-20] MEDS ORDERED: METF1000 PO (17:09)
[2016-09-20] MEDS ORDERED: LOSA100T7 PO (17:09)
[2016-09-20] MEDS ORDERED: MORP15TA92 PO (17:10)
[2016-09-20] MEDS ORDERED: METO-448 PO (17:10)
[2016-09-20] MEDS ORDERED: PREG150C PO (17:11)
[2016-09-20 17:12] LABS: ADD UMIC YES; UR ASCORBIC ACID NEGATIVE (NEGATIVE); UR BILIRUBIN (Dip) NEGATIVE (NEGATIVE); UR BLOOD (Dip) 1+ mg/dL (NEGATIVE); UR CLARITY CLEAR (CLEAR); UR COLOR STRAW (YELLOW); UR GLUCOSE (Dip) 3+ mg/dL (NEGATIVE); UR KETONES (Dip) NEGATIVE (NEGATIVE); UR LEUKOCYTE ESTERASE (Dip) NEGATIVE Leu/ul (NEGATIVE); UR NITRITE (Dip) NEGATIVE (NEGATIVE); UR RBC 2 /HPF (0-5); UR SPECIFIC GRAVITY (Dip) 1.023 (1.003-1.030); UR TOTAL PROTEIN (Dip) NEGATIVE (NEGATIVE); UR UROBILINOGEN (Dip) NEGATIVE (NEGATIVE)
[2016-09-20] MEDS ORDERED: TRAM-40 PO (17:12)
[2016-09-20] MEDS ORDERED: ZOLP5TAB PO (17:12)
[2016-09-20] MEDS ORDERED: METH500T PO (17:25)
[2016-09-20 17:33] LABS: AADO2 Arterial 44.5 mmHg (7.0-24.0); Arterial Base Excess -0.5 mmol/L (-3.0-3); Arterial COHb 0.2 % (0.0-3.0); Arterial Fraction of Oxyhgb 90.3 % (93.0-99.0); Arterial HCO3 23.4 mmol/L (22.0-26.0); Arterial MetHb 0.2 % (0.0-1.5); MODE ROOM AIR
[2016-09-20 17:36] LABS: CALCIUM 9.1 mg/dl (8.4-10.2); CREATININE 0.61 mg/dl (0.44-1.00); POTASSIUM 4.4 mmol/L (3.5-5.1)
--- NOTE | 2016-09-20 17:39 | RADRPT ---
PROCEDURE: XR Chest. CLINICAL INDICATION: Shortness of breath. Hyperglycemia. TECHNIQUE: Single frontal view. COMPARISON: 04/06/2015. FINDINGS: The lungs are clear. The heart size is normal. There is calcification in the aorta consistent with atherosclerosis. There is no pleural effusion. There is no pneumothorax. IMPRESSION: 1. Atherosclerosis. 2. Otherwise normal chest radiograph. RPTAT: QQ .Jason Fox MD, MD Date Time Electronically viewed and signed by .Jason Fox MD, on 09/20/2016 17:39 .R/
--- NOTE | 2016-09-20 18:17 | ERA ---
ER Documentation Chief Complaint Date/Time DATE: 09/20/16 TIME: 18:08 Chief Complaint headache x 3 days worse since yesteday, left arm numbness since yesterday HPI This is a 61-year-old female with multiple medical problems including hypertension and diabetes who presents with a multitude of complaints that include several days of headache that are gradual, dull and throbbing and frontal with associated paresthesias to entire body. At triage he noted left arm numbness but denies this to knee. She denies any chest pain or pleuritic pain no fevers or chills. The patient also notes that her blood pressure has been elevated in the 200s. The patient also notes that her blood sugar has been in the 500s. ROS All systems reviewed and are negative except as per history of present illness. Medications Home Meds Reported Medications Methocarbamol* (Robaxin*) 500 Mg Tab, 500 MG PO DAILY, TAB 09/20/16 Zolpidem Tartrate* (Ambien*) 5 Mg Tablet, 5 MG PO QHS Y for INSOMNIA, #30 TAB 09/20/16 Tramadol Hcl* (Ultram*) 50 Mg Tablet, 100 MG PO QHS Y for PAIN, TAB 09/20/16 Pregabalin* (Lyrica*) 150 Mg Capsule, 150 MG PO BID, CAP 09/20/16 Morphine Sulfate* (Ms Contin*) 15 Mg Tablet.sa, 15 MG PO QHS Y for NEEDED, TAB 09/20/16 Metoprolol Tartrate* (Lopressor*) 25 Mg Tab, 25 MG PO BID, #60 TAB 09/20/16 Metformin Hcl* (Metformin Hcl*) 1,000 Mg Tablet, 1000 MG PO WITH BREAKFAST DINNE , #60 TAB 09/20/16 Losartan Potassium* (Losartan Potassium*) 100 Mg Tablet, 100 MG PO DAILY, TAB 09/20/16 Insulin Lispro (Humalog Kwikpen U-100) 100 Unit/1 Ml Insuln.pen, 0 SQ BEFORE MEALS TAKE 25-30 UNITS WITH SLIDING SCALE 09/20/16 Insulin Glargine* (Lantus*) 100 Unit/Ml Soln, 0 SC BID, #1 VIAL TAKE 40-45 UNITS BID DEPENDS BS HOW HIGH 09/20/16 Etanercept (Enbrel) 50 Mg/1 Ml Pen.injctr, 50 MG SQ Q7D 09/20/16 Discontinued Reported Medications Etanercept (Enbrel) 50 Mg/Ml Pen.injctr, 50 MG SQ on 02/24/14 Insulin Lispro (Humalog) 100 U/Ml Cartridge, 10 UNITS SC WITH MEALS, EA 02/24/14 Metoprolol Tartrate* (Lopressor*) 25 Mg Tab, 25 MG PO BID, TAB 02/24/14 Morphine Sulfate* (Ms Contin*) 15 Mg Tablet.sa, 45 MG PO BID, TAB.SA 02/24/14 Losartan Potassium* (Losartan Potassium*) 100 Mg Tablet, 100 MG PO DAILY, TAB 02/24/14 Insulin Glargine* (Lantus*) 100 Unit/Ml Soln, 40 UNIT SC BID, EA 02/24/14 Pregabalin* (Lyrica*) 75 Mg Capsule, 150 MG PO BID 12/15/12 Tramadol Hcl (Rybix Odt) 50 Mg Tab.rapdis, 50 MG PO DAILY Y for PAIN 12/15/12 Gabapentin* (Gabapentin*) 600 Mg Tablet, 600 MG PO BID 12/15/12 Metformin* (Glucophage*) 1,000 Mg Tablet, 1000 MG PO BID 12/15/12 Zolpidem Tartrate* (Ambien*) 5 Mg Tablet, 5 MG PO DAILY Y for SLEEP 04/16/09 Discontinued Scripts Pantoprazole* (Protonix*) 40 Mg Tablet.dr, 40 MG PO BID for 30 Days, TAB Prov:MARTINA KRISHNAMURTHY MD 03/06/16 Albuterol Sulfate* (Proventil* Neb) 0.083% Neb, 2.5 MG NEB Q4 Y for SHORTNESS OF BREATH, #30 EA Prov:DANIELLE CHO 04/07/15 Albuterol Sulfate* (Ventolin HFA*) 18 Gm Hfa.aer.ad, 2 PUFF INHALATION Q4H, #1 INHALER Prov:DANIELLE CHO 04/07/15 Prednisone* (Prednisone*) 20 Mg Tab, 40 MG PO DAILY for 4 Days, TAB Prov:DANIELLE CHO 04/07/15 Ondansetron Hcl* (Zofran* ODT) 4 mg -ODT Tab.disper, 4 MG PO Q6 Y for NAUSEA AND /OR VOMITING, #20 TAB Prov:SAMIR KIDD MD 09/03/14 Mag Hydrox/Al Hydrox/Simeth (Maalox Max Strength Susp) 769 Ml Oral.susp, 2 TSP PO TID, #12 OZ Prov:SAMIR KIDD MD 09/03/14 Albuterol Sulfate* (Albuterol Sulfate* HFA) 8.5 Gm Hfa.aer.ad, 1-2 PUFF INH Q4 Y for SHORTNESS OF BREATH, #1 EA Prov:SAMIR KIDD MD 09/03/14 Sennosides/Docusate Sodium* (Senna-S*) 1 Tab Tablet, 1 TAB PO Q12 for 30 Days, TAB 1 Refill Prov:MEAGAN WOODRUFF 02/25/14 Hydrocodone Bit/Acetaminophen (Anexsia 5-325 Mg Tablet) 1 Tab Tab, 1 TAB PO q6h Y for PAIN, #14 0 Refills Prov:MEAGAN WOODRUFF 02/25/14 Allergies Allergies: Coded Allergies: No Known Allergy (Verified , 09/03/14) PMhx/Soc History of Surgery: Yes (CHOLECYSTECTOMY 3 YEARS AGO, TIED AND UNTIED TUBES TO HAVE ANOTHER BABY ) Anesthesia Reaction: No Hx Neurological Disorder: Yes (CVA MANY YEARS AGO, SPINAL STENOSIS ) Hx Respiratory Disorders: Yes (ASTHMA ) Hx Cardiac Disorders: Yes (HTN ) Hx Psychiatric Problems: No Hx Miscellaneous Medical Probl: Yes (DM RHEUMETOID ARITIS ) Hx Alcohol Use: No Hx Substance Use: No Hx Tobacco Use: No Smoking Status: Never smoker FmHx Family History: No diabetes Physical Exam Vitals Vital Signs Date Time Temp Pulse Resp B/P Pulse Ox O2 Delivery O2 Flow Rate FiO2 09/20/16 18:58 98 17 164/80 100 Room Air 09/20/16 17:04 90 17 163/85 98 Room Air 09/20/16 15:36 177/81 09/20/16 14:41 98.3 101 20 260/121 97 Physical Exam General: Well developed, well nourished, no acute distress, morbidly obese Head: Normocephalic, atraumatic. Eyes: Pupils equally reactive, EOM intact, small subconjunctival hemorrhage to the right midline and inferior conjunctival approximately 6:00 ENT: Moist mucous membranes Neck: Supple, no lymphadenopathy Respiratory: Lungs clear bilaterally, no distress Cardiovascular: RRR, no murmurs, rubs, or gallops Abdominal: Soft, non-tender, non-distended, no peritoneal signs : Deferred MSK: No edema, no unilateral swelling, 5/5 strength Neurologic: Alert and oriented, moving all extremities, normal speech, no focal weakness, no cerebellar signs Skin: No rash Psych: Normal mood Result Diagram: 09/20/16 1700 09/20/16 1700 Results 24 hrs Laboratory Tests Test 09/20/16 16:52 09/20/16 17:00 09/20/16 17:24 09/20/16 18:48 Bedside Glucose 422mg/dL 334mg/dL White Blood Count 9.210^3/ul Red Blood Count 4.4810^6/ul Hemoglobin 13.5g/dl Hematocrit 40.5% Mean Corpuscular Volume 90.4fl Mean Corpuscular Hemoglobin 30.1pg Mean Corpuscular Hemoglobin Concent 33.3g/dl Red Cell Distribution Width 12.2% Platelet Count 26975^3/UL Mean Platelet Volume 11.6fl Neutrophils % 82.2% Lymphocytes % 14.2% Monocytes % 2.3% Eosinophils % 0.0% Basophils % 0.1% Nucleated Red Blood Cells % 0.0/100WBC Neutrophils # 7.610^3/ul Lymphocytes # 1.310^3/ul Monocytes # 0.210^3/ul Eosinophils # 0.010^3/ul Basophils # 0.010^3/ul Nucleated Red Blood Cells # 0.010^3/ul Urine Color STRAW Urine Clarity CLEAR Urine pH 8.0 Urine Specific [place] 1.023 Urine Ketones NEGATIVEmg/dL Urine Nitrite NEGATIVEmg/dL Urine Bilirubin NEGATIVEmg/dL Urine Urobilinogen NEGATIVEmg/dL Urine Leukocyte Esterase NEGATIVELeu/ul Urine Microscopic RBC 2/HPF Urine Microscopic WBC 1/HPF Urine Hemoglobin 1+mg/dL Urine Glucose 3+mg/dL Urine Total Protein NEGATIVEmg/dl Sodium Level 138mmol/L Potassium Level 4.4mmol/L Chloride Level 96mmol/L Carbon Dioxide Level 28mmol/L Anion Gap 18 Blood Urea Nitrogen 13mg/dl Creatinine 0.61mg/dl Glucose Level 445mg/dl Calcium Level 9.1mg/dl Blood Gas Specimen Source Blood arterial Arterial Blood Date Drawn 09/20/2016 5:25:25 PM Arterial Blood pH (Temp corrected) 7.427 Arterial Blood pCO2 (Temp correct) 36.3mmhg Arterial Blood pO2 (Temp corrected) 61.8mmHG Arterial Blood HCO3 23.4mmol/L Arterial Blood Base Excess -0.5mmol/L Arterial Blood Oxygen Saturation 90.7mmHG Vinh Test N/A Arterial Blood Gas Puncture Site VENOUS LINE Arterial Blood Carboxyhemoglobin 0.2% Arterial Blood Methemoglobin 0.2% Blood Gas A-a O2 Differential 44.5mmHg Oxyhemoglobin Percent 90.3% Total Hemoglobin 14.0g/dl Blood Gas Temperature 37.0C Blood Gas Actual Respiration Rate 20 Blood Gas Modality ROOM AIR FiO2 21.0% Blood Gas Critical Value Read Back DR. ROGERS Blood Gas Notified Whom MERARI MONTENEGRO Blood Gas Notified Time 09/20/2016 5:33:21 PM Current Medications Medications (Trade) Dose Ordered Sig/Chevy Route PRN Reason Start Time Stop Time Status Last Admin Dose Admin Sodium Chloride (NS) 1,000 ml @ 1,000 mls/hr Q1H STAT IV 09/20/16 16:57 09/20/16 17:56 DC 09/20/16 17:09 Morphine Sulfate (morphine) 4 mg ONCE STAT IV 09/20/16 16:57 09/20/16 17:00 DC 09/20/16 17:10 Ondansetron HCl (Zofran Inj) 4 mg ONCE STAT IV 09/20/16 16:57 09/20/16 17:00 DC 09/20/16 17:10 Fluconazole (Diflucan) 150 mg ONCE ONCE PO 09/20/16 19:00 09/20/16 19:01 DC Insulin Human Lispro (Humalog) 7 unit ONCE STAT SC 09/20/16 18:44 09/20/16 18:50 DC Morphine Sulfate (morphine) 4 mg ONCE STAT IV 09/20/16 18:44 09/20/16 18:46 DC Procedures/MDM EKG, MONITORS, & DIAGNOSTIC IMAGING: EKG: I reviewed and interpreted a 12-lead EKG. Rhythm: Normal sinus rhythm Ectopy: None Intervals: No abnormalities ST segments: No elevations or depressions T waves: No contiguous inversions Chest x-ray: I reviewed and interpreted a 1 view of the chest Mediastinum: No enlargement Cardiac silhouette: No cardiomegaly Airspace: Clear lung luong bilaterally without evidence of pneumothorax Bones: No evidence of fracture CT brain: No acute process LAB INTERPRETATION: Hyperglycemia without evidence of diabetic ketoacidosis MEDICAL DECISION MAKING: The patient presents with signs and symptoms very consistent with hypertensive urgency. The patient does not have any chest pain she has diffuse body paresthesias without any anginal equivalent. Patient does have a headache likely secondary to elevated blood pressure. Unclear etiology given the patient verbalizes compliance with medications. ER COURSE: The patient has a CT brain that is negative. Her symptoms are improving with pain control and blood pressure improvement without significant intervention. The patient's glucose was trending down. No indication for insulin at this point.. She was given IV fluids. At this time she does not have any evidence of endorgan dysfunction and I believe outpatient management would be appropriate. The patient is requesting Diflucan as she states that she gets vulvovaginal candidiasis with elevated blood sugar. The patient does have evidence of a subconjunctival hemorrhage without evidence of acute intracranial process. She is perseverating about this but I explained the significance of subconjunctival hemorrhage and outpatient follow-up with ophthalmology as needed. I kept the patient and/or family informed of laboratory and diagnostic imaging results throughout the emergency room course. DISPOSITION PLAN: We discussed follow up with the patient's primary care doctor within 24 to 48 hours as needed. We also discussed return to the emergency room for worsening symptoms or worsening condition. Outpatient referral: [None required] Departure Diagnosis: Primary Impression: Hypertensive urgency Additional Impressions: Subconjunctival hemorrhage of right eye Hyperglycemia Condition: Stable AMI ROGERS MD Sep 20, 2016 18:17
--- NOTE | 2016-09-20 18:32 | RADRPT ---
PROCEDURE: CT Brain without. CLINICAL INDICATION: Hypertension, hyperglycemia. TECHNIQUE: A CT of the brain was performed on multidetector high-resolution CT scanner utilizing a xial sections from the skull base through the vertex without contrast. The scan was reviewed in sof t tissue brain and high frequency resolution bone algorithm windows. Images were reviewed on a high -resolution PACS workstation. One or more the following does reduction techniques were utilized: Aut omated exposure control, adjustment of the mA/ or kV according to patient's size, or use of iterativ e reconstruction technique. The exam CTDI = 42.16 mGy and the DLP = 720.23 mGy-cm. COMPARISON: Brain CT 10/13/2008. FINDINGS: The ventricles and sulci are minimally prominent indicative of volume loss. There is no intracrania l hemorrhage, mass effect or midline shift. No abnormal intra-axial or extra-axial fluid collection s are seen. The thompson/white matter differentiation is preserved. Partially empty sella is noted. There are mild scattered foci of hypoattenuation in the white matter, which are nonspecific in etiol ogy but likely reflect chronic small vessel ischemic changes. There are mild intracranial vascular calcifications consistent with atherosclerosis. The visualized paranasal sinuses are essentially abhilash ar. IMPRESSION: 1. No acute intracranial hemorrhage, transcortical infarction or mass effect. 2. Mild intracranial atherosclerosis and chronic small vessel ischemic changes. 3. Partially empty sella. 4. Minimal generalized cerebral volume loss. RPTAT: HH .Reshma Mora MD, MD Date Time Electronically viewed and signed by .Reshma Mora MD, MD on 09/20/2016 18:32 .N/
[2016-09-20] MEDS ORDERED: INSULIN LISPRO 100 UNIT/ML VIAL SC STA (18:44)
[2016-09-20 18:58] VITALS: BP 164/80; PULSE 98; RESP 17
[2016-09-20] MEDS ORDERED: FLUCONAZOLE 150 MG TAB PO ONE (19:00)
== END 2016-09-20 19:40 | disposition home or self-care (01) ==
LOC: E/R 14:34
DX: I16.0 Hypertensive urgency (principal); I10 Essential (primary) hypertension; H11.31 Conjunctival hemorrhage, right eye; E11.65 Type 2 diabetes mellitus with hyperglycemia; J45.909 Unspecified asthma, uncomplicated; Z79.4 Long term (current) use of insulin; Z79.84 Long term (current) use of oral hypoglycemic drugs
CPT/HCPCS: 36600; 70450; 71010; 80048; 81001; 82803; 82962; 85025; 93005; J7030; Z7610; 36415; 96361; 96374; 96375; 96376; J2270; J2405

== ENCOUNTER 2017-01-10 11:32 | Emergency (ER) | payer OTHER ==
[~2017-01-10] VITALS: Ht 162.6 cm; Wt 131.6 kg
[~2017-01-10 11:32] MED LIST changes: -ALBU18HF INHALATION; -ALBU8.5H5 INH; +ETAN50PE SQ; -ETAN50PE2 SQ; -GABA-526 PO; -HYDR-3498 PO; -INSU100C SC; +INSU100I12 SQ; -LYR75 PO; -MAG355OR15 PO; +METF1000 PO; +METH500T PO; -MTF1000T PO; -ONDA4TAB35 PO; -PANT40TA3 PO; -PRED20TA PO; +PREG150C PO; -RTPRO NEB; -SENN-8 PO; +TRAM-40 PO; -TRAM-408 PO
[2017-01-10 11:34] VITALS: Ht 162.6 cm; Wt 131.6 kg
[2017-01-10] MEDS ORDERED: HYDROmorphONE 1 MG/ML SYG IM STA (12:52)
[2017-01-10] MEDS ORDERED: ACETAMINOPHEN 325 MG TAB PO ONE (13:00)
[2017-01-10] MEDS ORDERED: FAMOTIDINE 20 MG TAB PO ONE (13:00)
[2017-01-10] MEDS ORDERED: TRAM50TA2 PO (13:27)
--- NOTE | 2017-01-10 13:33 | ERD ---
ER Documentation Chief Complaint Chief Complaint lower back pain x last night, denies pain with urination HPI 61-year-old female complains of low back pain since last night. She denies any fall or history of trauma. Patient has a history of rheumatoid arthritis. Patient is primary doctor is taking morphine at home for pain. She has an MRI scheduled at all of you this month. She denies any bowel or bladder incontinence, fevers, urinary complaints. She denies any flank pain or abdominal pain. Patient has a history of gastritis and is requesting gastritis medicine as she is taking a lot of oral medications for her back pain causing epigastric burning and discomfort. She denies any chest pain or shortness of breath. ROS All systems reviewed and are negative except as per history of present illness. Medications Home Meds Active Scripts Hydrocodone/Acetaminophen ([place] 10-325 Tablet) 1 Each Tablet, 1 TAB PO Q6H Y for PAIN, #14 TAB Prov:SPARKLE MENDIOLA MD 01/10/17 Pantoprazole* (Protonix*) 40 Mg Tablet.dr, 40 MG PO DAILY, #15 TAB Prov:SPARKLE MENDIOLA MD 01/10/17 Reported Medications Methocarbamol* (Robaxin*) 500 Mg Tab, 500 MG PO DAILY, TAB 09/20/16 Zolpidem Tartrate* (Ambien*) 5 Mg Tablet, 5 MG PO QHS Y for INSOMNIA, #30 TAB 09/20/16 Tramadol Hcl* (Ultram*) 50 Mg Tablet, 100 MG PO QHS Y for PAIN, TAB 09/20/16 Pregabalin* (Lyrica*) 150 Mg Capsule, 150 MG PO BID, CAP 09/20/16 Morphine Sulfate* (Ms Contin*) 15 Mg Tablet.sa, 15 MG PO QHS Y for NEEDED, TAB 09/20/16 Metoprolol Tartrate* (Lopressor*) 25 Mg Tab, 25 MG PO BID, #60 TAB 09/20/16 Metformin Hcl* (Metformin Hcl*) 1,000 Mg Tablet, 1000 MG PO WITH BREAKFAST DINNE , #60 TAB 09/20/16 Losartan Potassium* (Losartan Potassium*) 100 Mg Tablet, 100 MG PO DAILY, TAB 09/20/16 Insulin Lispro (Humalog Kwikpen U-100) 100 Unit/1 Ml Insuln.pen, 0 SQ BEFORE MEALS TAKE 25-30 UNITS WITH SLIDING SCALE 09/20/16 Insulin Glargine* (Lantus*) 100 Unit/Ml Soln, 0 SC BID, #1 VIAL TAKE 40-45 UNITS BID DEPENDS BS HOW HIGH 09/20/16 Etanercept (Enbrel) 50 Mg/1 Ml Pen.injctr, 50 MG SQ Q7D 09/20/16 Discontinued Scripts Tramadol HCl (Tramadol HCl) 50 Mg Tablet, 50 MG PO Q4 Y for PAIN, #20 TAB Prov:SPARKLE MENDIOLA MD 01/10/17 Allergies Allergies: Coded Allergies: No Known Allergy (Verified , 09/03/14) PMhx/Soc History of Surgery: Yes (CHOLECYSTECTOMY 3 YEARS AGO, TIED AND UNTIED TUBES TO HAVE ANOTHER BABY ) Anesthesia Reaction: No Hx Neurological Disorder: Yes (CVA MANY YEARS AGO, SPINAL STENOSIS ) Hx Respiratory Disorders: Yes (ASTHMA ) Hx Cardiac Disorders: Yes (HTN ) Hx Psychiatric Problems: No Hx Miscellaneous Medical Probl: Yes (DM RHEUMETOID ARITIS , CHRONIC BACK PAIN) Hx Alcohol Use: No Hx Substance Use: No Hx Tobacco Use: No Physical Exam Vitals Vital Signs Date Time Temp Pulse Resp B/P Pulse Ox O2 Delivery O2 Flow Rate FiO2 01/10/17 11:34 98.0 88 20 168/78 98 Physical Exam Const: [], Morbidly obese, crying due to pain. Head: Atraumatic Eyes: Normal Conjunctiva ENT: Normal External Ears, Nose and Mouth. Neck: Full range of motion..~ No meningismus. Resp: Clear to auscultation bilaterally Cardio: Regular rate and rhythm, no murmurs Abd: Soft, non tender, non distended. Normal bowel sounds Skin: No petechiae or rashes Back: No midline or flank tenderness or tenderness in the L4-5 lumbar area diffusely without deformities or step-offs or midline tenderness. Normal gait. No appreciable deficits. Ext: No cyanosis, or edema Neur: Awake and alert Psych: Normal Mood and Affect Results 24 hrs Current Medications Medications (Trade) Dose Ordered Sig/Chevy Route PRN Reason Start Time Stop Time Status Last Admin Dose Admin Hydromorphone HCl (Dilaudid) 1 mg ONCE STAT IM 01/10/17 12:52 01/10/17 12:53 DC 01/10/17 13:20 Famotidine (Pepcid) 20 mg ONCE ONCE PO 01/10/17 13:00 01/10/17 13:01 DC 01/10/17 13:20 Acetaminophen (Tylenol Tab) 650 mg ONCE ONCE PO 01/10/17 13:00 01/10/17 13:01 DC 01/10/17 13:20 Procedures/MDM Patient was given Dilaudid 1 mg IM for acute pain despite p.o. meds. Neurologic studies were deferred given absence of trauma and patient has MRI appointment pending. Patient appears to have good outpatient follow-up. Current signs or symptoms do not suggest UTI, epidural abscess, and there is no mechanism to stress fracture dislocation. She will treated with short course of [place] and instructions to continue home meds and will give Protonix for history of gastritis. Patient is advised to return for new or worsening symptoms related to back pain or gastritis as directed and aftercare instructions with primary care doctor. The patient was stable with no new complaints during the ER course. Clinically, there is no current evidence to suggest meningitis, sepsis, acute abdomen, pneumonia, acute coronary syndrome, pulmonary embolism, or any other emergent condition appearing to require further evaluation or hospitalization. The patient should certainly return for any new or worsening symptoms per the aftercare instructions. They should otherwise follow-up with her primary care doctor for reevaluation this week. Departure Diagnosis: Primary Impression: Back pain Back pain location: low back pain Chronicity: acute Back pain laterality: bilateral Sciatica presence: without sciatica Qualified Code: M54.5 - Acute bilateral low back pain without sciatica Condition: Stable Patient Instructions: Back Pain (Acute Or Chronic) Additional Instructions: Cheque otro vez con armendariz doctor primario en el proximo osman or regresa para mas o nueva simptomas. SPARKLE MENDIOLA MD Jan 10, 2017 13:33
[2017-01-10] MEDS ORDERED: PANT40TA3 PO (13:34)
[2017-01-10] MEDS ORDERED: HYDR-902 PO (14:27)
== END 2017-01-10 14:29 | disposition home or self-care (01) ==
LOC: FTE 11:32
DX: M54.5 Low back pain (principal); E11.9 Type 2 diabetes mellitus without complications; I10 Essential (primary) hypertension; J45.909 Unspecified asthma, uncomplicated; Z79.4 Long term (current) use of insulin; Z79.84 Long term (current) use of oral hypoglycemic drugs
CPT/HCPCS: 96372; J1170; Z7502; Z7610

== ENCOUNTER 2017-07-25 14:28 | Emergency (ER) | END 2017-07-25 16:38 | disposition home or self-care (01) ==

== ENCOUNTER 2017-10-11 20:26 | Inpatient (IN) | END 2017-10-18 18:05 | disposition home health service (06) | DRG 202 ==

== ENCOUNTER 2018-03-05 14:22 | Emergency (ER) | payer OTHER ==
[~2018-03-05] VITALS: Ht 127 cm; Wt 129.4 kg
[~2018-03-05 14:22] MED LIST changes: +ALBU8.5H8 INH; +AMOX500C2 PO; +ERTA1VIA IV; -ETAN50PE SQ; +FLUC100T PO; -INSU100I12 SQ; +LINA5TAB PO; -LOSA100T7 PO; +LOSA100T8 PO; -METF1000 PO; +METF100010 PO; -METH500T PO; -MORP15TA92 PO; +NPH,100V SQ; +SIMV20TA PO; -TRAM-40 PO
[2018-03-05 14:28] VITALS: BP 144/70; PULSE 95; RESP 20; Ht 127 cm; Wt 129.4 kg
[2018-03-05] MEDS ORDERED: KETOROLAC 30 MG INJ IM STA (18:10)
[2018-03-05] MEDS ORDERED: ONDANSETRON (ODT) 4 MG TAB ODT STA (18:56)
[2018-03-05] MEDS ORDERED: LIDOCAINE/MYLANTA 40 ML BTL PO ONE (19:30)
[2018-03-05] MEDS ORDERED: PENI500T PO (20:25)
[2018-03-05] MEDS ORDERED: ACET-141 PO (20:41)
[2018-03-05] MEDS ORDERED: IBUP-1542 PO (20:41)
[2018-03-05] MEDS ORDERED: ONDA4TAB14 PO (20:41)
--- NOTE | 2018-03-05 21:00 | ERD ---
ER Documentation Chief Complaint Chief Complaint Complains of vag beed x 3 days ROS All systems reviewed and are negative except as per history of present illness. Medications Home Meds Active Scripts Ondansetron (Ondansetron Odt) 4 Mg Tab.rapdis, 4 MG PO Q6H PRN for NAUSEA AND/OR VOMITING, #10 TAB Prov:KELLYPRAFUL DO 03/05/18 Acetaminophen* (Acetaminophen*) 500 MG Extra Strength Tablet, 500 MG PO Q4H PRN for PAIN AND OR ELEVATED TEMP, #30 TAB Prov:KELLYPRAFUL DO 03/05/18 Ibuprofen* (Motrin*) 600 Mg Tab, 600 MG PO Q6H PRN for PAIN AND OR ELEVATED TE MP, #30 TAB Prov:KELLYPRAFUL DO 03/05/18 Zolpidem Tartrate* (Ambien*) 5 Mg Tablet, 5 MG PO QHS PRN for INSOMNIA, #30 TAB Prov:POLO MCLAUGHLIN NP 10/18/17 Linagliptin (TRADJENTA) 5 Mg Tablet, 5 MG PO DAILY, #30 TAB Prov:POLO MCLAUGHLIN NP 10/18/17 Albuterol Sulfate* (Proair HFA*) 8.5 Gm Hfa.aer.ad, 2 PUFF INH Q4 for Dyspnea, #1 INHALER Prov:POLO MCLAUGHLIN NP 10/18/17 Ertapenem Sodium (Invanz) 1 Gm Vial.port, 1 GM IV Q24H for 4 Days Last day 10/22/2017 Prov:POLO MCLAUGHLIN NP 10/18/17 Fluconazole* (Diflucan*) 100 Mg Tablet, 100 MG PO DAILY, #4 TAB Prov:POLO MCLAUGHLIN NP 10/18/17 Amoxicillin* (Amoxicillin*) 500 Mg Cap, 500 MG PO Q8 for 4 Days, #12 CAP Prov:POLO MCLAUGHLIN NP 10/18/17 Reported Medications Simvastatin* (Zocor*) Unknown Strength Tablet, 1 TAB PO QHS, #30 TAB 10/11/17 Metformin Hcl* (Metformin Hcl*) 1,000 Mg Tablet, 1000 MG PO WITH BREAKFAST, #30 TAB 10/11/17 Pregabalin* (Lyrica*) 150 Mg Capsule, 150 MG PO BID, CAP 07/25/17 Metoprolol Tartrate* (Lopressor*) 25 Mg Tab, 25 MG PO BID, #60 TAB 07/25/17 Losartan Potassium* (Losartan Potassium*) 100 Mg Tablet, 100 MG PO DAILY, TAB 07/25/17 Insulin NPH Human Isophane (Humulin N) 100 Unit/1 Ml Vial, 20 UNIT SQ TID, VIAL 07/25/17 Insulin Glargine* (Lantus*) 100 Unit/Ml Soln, 50 UNIT SC BID, #1 VIAL 07/25/17 Discontinued Scripts Penicillin V Potassium* (Penicillin V K*) 500 Mg Tab, 500 MG PO TID for strep pharyngitis for 10 Days, #30 TAB Prov:PRAFUL MENDOZA DO 03/05/18 Allergies Allergies: Coded Allergies: No Known Allergy (Verified , 10/11/17) PMhx/Soc History of Surgery: Yes (CHOLECYSTECTOMY 3 YEARS AGO) Anesthesia Reaction: No Hx Neurological Disorder: Yes (cva, SPINAL stenosis) Hx Respiratory Disorders: Yes (asthma) Hx Cardiac Disorders: Yes (HTN) Hx Psychiatric Problems: No Hx Miscellaneous Medical Probl: Yes (DM) Hx Alcohol Use: No Hx Substance Use: No Hx Tobacco Use: No Smoking Status: Never smoker Physical Exam Vitals Vital Signs Date Temp Pulse Resp B/P (MAP) Pulse Ox O2 O2 Flow FiO2 Time Delivery Rate 03/05/18 98.6 95 20 144/70 96 14:28 (94) Physical Exam Const: No acute distress Head: Atraumatic Eyes: Normal Conjunctiva ENT: Normal External Ears, Nose and Mouth. Neck: Full range of motion. No meningismus. Resp: Clear to auscultation bilaterally Cardio: Regular rate and rhythm, no murmurs Abd: Soft, non tender, non distended. Normal bowel sounds Skin: No petechiae or rashes Back: No midline or flank tenderness Ext: No cyanosis, or edema Neur: Awake and alert Psych: Normal Mood and Affect Result Diagram: 03/05/18191403/05/181914 Results 24 hrs Laboratory Tests Test 03/05/18 19:15 03/05/18 19:16 White Blood Count 10.2 10^3/ul Red Blood Count 4.48 10^6/ul Hemoglobin 13.4 g/dl Hematocrit 40.7 % Mean Corpuscular Volume 90.8 fl Mean Corpuscular Hemoglobin 29.9 pg Mean Corpuscular Hemoglobin Concent 32.9 g/dl Red Cell Distribution Width 12.6 % Platelet Count 300 10^3/UL Mean Platelet Volume 11.1 fl Immature Granulocytes % 0.400 % Neutrophils % 62.6 % Lymphocytes % 28.5 % Monocytes % 7.5 % Eosinophils % 0.7 % Basophils % 0.3 % Nucleated Red Blood Cells % 0.0 /100WBC Immature Granulocytes # 0.040 10^3/ul Neutrophils # 6.4 10^3/ul Lymphocytes # 2.9 10^3/ul Monocytes # 0.8 10^3/ul Eosinophils # 0.1 10^3/ul Basophils # 0.0 10^3/ul Nucleated Red Blood Cells # 0.0 10^3/ul Sodium Level 139 mmol/L Potassium Level 4.1 mmol/L Chloride Level 104 mmol/L Carbon Dioxide Level 30 mmol/L Anion Gap 5 Blood Urea Nitrogen 14 mg/dl Creatinine 0.56 mg/dl Est Glomerular Filtrat Rate mL/min > 60 mL/min Glucose Level 180 mg/dl Calcium Level 9.1 mg/dl Total Bilirubin 0.3 mg/dl Direct Bilirubin 0.00 mg/dl Indirect Bilirubin 0.3 mg/dl Aspartate Amino Transf (AST/SGOT) 34 IU/L Alanine Aminotransferase (ALT/SGPT) 26 IU/L Alkaline Phosphatase 91 IU/L Total Protein 8.0 g/dl Albumin 4.1 g/dl Globulin 3.90 g/dl Albumin/Globulin Ratio 1.05 Urine Color YELLOW Urine Clarity CLEAR Urine pH 6.0 Urine Specific [place] 1.013 Urine Ketones NEGATIVE mg/dL Urine Nitrite NEGATIVE mg/dL Urine Bilirubin NEGATIVE mg/dL Urine Urobilinogen NEGATIVE mg/dL Urine Leukocyte Esterase NEGATIVE Ankit/ul Urine Hemoglobin NEGATIVE mg/dL Urine Glucose 3+ mg/dL Urine Total Protein NEGATIVE mg/dl Current Medications Medications Dose Sig/Chevy Start Time Status Last (Trade) Ordered Route PRN Stop Time Admin Dose Reason Admin Ketorolac 30 mg ONCE STAT 03/05/18 DC 03/05/18 Tromethamine IM 18:10 03/05/18 18:57 (Toradol) 18:11 Ondansetron 4 mg ONCE STAT 03/05/18 DC HCl (Zofran ODT 18:56 03/05/18 Odt) 18:57 40 ml ONCE ONCE 03/05/18 DC 03/05/18 Miscellaneous PO 19:30 03/05/18 19:45 Medication 19:31 (Gi Cocktail (2)) Departure Diagnosis: Primary Impression: Vaginal bleeding Additional Impression: Low back pain Chronicity: chronic Back pain laterality: unspecified Sciatica presence: with sciatica Sciatica laterality: bilateral sciatica Qualified Codes: M54.41 - Lumbago with sciatica, right side; M54.42 - Lumbago with sciatica, left side; G89.29 - Other chronic pain Condition: Fair Patient Instructions: Back Care Tips, Back And Neck Pain, General Additional Instructions: Llame al doctor MAANA y je romario SHIV PARA DENTRO DE 1-2 [place].Dgale a la secretaria que nosotros le instruimos hacer esta shiv.Avise o llame si armendariz condicin se empeora antes de la shiv. Regresa aqui si peor o no mejor. PRAFUL MENDOZA DO Mar 05, 2018 21:00
== END 2018-03-05 22:37 | disposition home or self-care (01) ==
LOC: FTE 14:22
DX: N93.9 Abnormal uterine and vaginal bleeding, unspecified (principal); M54.41 Lumbago with sciatica, right side; M54.42 Lumbago with sciatica, left side; E11.9 Type 2 diabetes mellitus without complications; I10 Essential (primary) hypertension; J45.909 Unspecified asthma, uncomplicated; Z86.73 Personal history of transient ischemic attack (TIA), and cerebral infarction without residual deficits; Z79.4 Long term (current) use of insulin
CPT/HCPCS: 72131; 74176; 80053; 81003; 85025; 96372; J1885; Z7502; Z7610